=== PATIENT | female | born 1950 | race Caucasian/White ===

== ENCOUNTER 2020-06-21 14:37 | Outpatient (REF) | payer MEDICARE, MEDICAID, SELFPAY ==
[2020-06-21 16:25] LABS: Hematocrit 37.7 % (37-47); Hemoglobin 12.5 g/dl (12.0-16.0); Mean Corpuscular HGB Conc 33.2 g/dl (31.0-35.0); Mean Corpuscular Hemoglobin 28.5 pg (27.0-33.0); Mean Corpuscular Volume 86.1 fL (80-98); Mean Platelet Volume 11.4 fL (9.4-12.3); Platelet Count 206 X10*3/uL (160-400); Red Blood Count 4.38 X10*6/uL (4.20-5.50); Red Cell Distribution Width 12.8 % (11.0-16.0); White Blood Count 8.7 X10*3/uL (4.8-10.8)
[2020-06-21 16:51] LABS: Alanine Aminotransferase 14 U/L (0-31); Albumin Level 4.7 g/dL (3.5-5.0); Alkaline Phosphatase 89 U/L (39-117); Anion Gap 16 (12-20); Aspartate Amino Transferase 18 U/L (5-31); Bilirubin Total 0.3 mg/dL (0.0-1.0); Blood Urea Nitrogen 28 mg/dL (9-16); Calcium 9.9 mg/dL (8.4-10.2); Carbon Dioxide 24 mmol/L (22-29); Chloride 100 mmol/L (96-108); Cholesterol 251 mg/dL; Estimated Glomerular Filt Rate 35; Glucose Random 212 mg/dL (60-115); HDL Cholesterol 50 mg/dL; Potassium 4.7 mmol/l (3.3-5.1); Sodium 135 mmol/L (135-145); Total Protein 8.1 g/dL (6.5-8.0); Triglycerides 436 mg/dL
[2020-06-21 16:51] LABS: Creatinine Urine 138.72 mg/dL
[2020-06-21 17:12] LABS: Free T4 (Free Thyroxine) 1.29 ng/dL (0.71-1.85); Thyroid Stimulating Hormone 0.69 mIU/mL (0.32-4.0)
[2020-06-21 17:19] LABS: Vitamin B12 1022 pg/mL (200-900)
[2020-06-22 20:22] LABS: LDL Cholesterol Direct 131 mg/dL (<100)
== END 2020-06-21 14:38 | disposition home or self-care (01) ==
LOC: HO.LAB 14:37
PROVIDERS: PCP Physician Assistant; Referring Provider Physician Assistant; Visit Provider Internal Medicine Endocrinology, Diabetes & Metabolism
DX: E11.65 Type 2 diabetes mellitus with hyperglycemia (principal); E11.43 Type 2 diabetes mellitus with diabetic autonomic (poly)neuropathy; E11.40 Type 2 diabetes mellitus with diabetic neuropathy, unspecified; E11.22 Type 2 diabetes mellitus with diabetic chronic kidney disease; I12.9 Hypertensive chronic kidney disease with stage 1 through stage 4 chronic kidney disease, or unspecified chronic kidney disease; N18.30 Chronic kidney disease, stage 3 unspecified; Z79.4 Long term (current) use of insulin; E55.9 Vitamin D deficiency, unspecified
CPT/HCPCS: 36415; 80053; 80061; 82043; 82607; 82947; 83721; 84439; 84443; 85027; 99214

== ENCOUNTER → 2020-08-08 16:00 | Outpatient (BNVA) | payer MEDICARE, MEDICAID, SELFPAY | PROVIDERS: PCP Physician Assistant; Visit Provider Surgery | DX: L97.519 Non-pressure chronic ulcer of other part of right foot with unspecified severity (principal) | CPT/HCPCS: 99202 ==

== ENCOUNTER → 2020-09-05 14:03 | Outpatient (BNVA) | payer MEDICARE, MEDICAID, SELFPAY | PROVIDERS: Visit Provider Surgery | DX: L97.519 Non-pressure chronic ulcer of other part of right foot with unspecified severity (principal) | CPT/HCPCS: 99212 ==

== ENCOUNTER 2020-10-25 16:53 | Outpatient (REF) | payer MEDICARE, MEDICAID, SELFPAY ==
[2020-10-25 17:43] LABS: Anion Gap 18 (12-20); Blood Urea Nitrogen 27 mg/dL (9-16); Calcium 9.7 mg/dL (8.4-10.2); Carbon Dioxide 23 mmol/L (22-29); Chloride 101 mmol/L (96-108); Estimated Glomerular Filt Rate 26; Glucose Random 190 mg/dL (60-115); Potassium 4.8 mmol/L (3.3-5.1); Sodium 137 mmol/L (135-145)
== END 2020-10-25 16:54 | disposition home or self-care (01) ==
LOC: HO.LAB 16:53
PROVIDERS: PCP Physician Assistant; Visit Provider Physician Assistant
DX: Z01.812 Encounter for preprocedural laboratory examination (principal)
CPT/HCPCS: 36415; 80048

== ENCOUNTER 2020-10-26 15:20 | Outpatient (REF) | payer MEDICARE, MEDICAID, SELFPAY ==
--- NOTE | ~2020-10-26 | CT_ITS ---
EXAMINATION: CT ABDOMEN AND PELVIS WITHOUT CONTRAST CLINICAL INFORMATION: Right lower quadrant pain. COMPARISON: None TECHNIQUE: Multidetector volumetric imaging was performed from the superior aspect of the liver through the pubic symphysis. Oral contrast is used. Sagittal and coronal reformatted images were obtained on the technologist's workstation. This CT examination was performed using dose optimization techniques as appropriate, variously including the following: *Automated exposure control *Adjustment of mA and/or kV according to patient size (this includes techniques or standardized protocols for targeted exams where dose is matched to indication/reason for exam; i.e. extremities or head) *Use of iterative reconstruction technique DLP: 615 mGy-cm FINDINGS: LUNG BASES: The visualized lung bases are unremarkable. LIVER, GALLBLADDER, AND BILIARY TREE: 3 mm calcified granuloma in the right lobe. No lesions seen. No biliary duct dilatation. Gallbladder appears unremarkable. PANCREAS: Fatty atrophy. No acute inflammatory changes seen. SPLEEN: Unremarkable. ADRENAL GLANDS: Unremarkable. KIDNEYS AND URETERS: No calculi or hydronephrosis. No solid lesions identified. BLADDER: Unremarkable. GASTROINTESTINAL TRACT: Small hiatal hernia. The stomach has luminal contents with oral contrast and fluid. No dilated small bowel loops. The large colon is distended. Scattered colonic diverticula without evidence of diverticulitis. No pericolonic inflammatory changes are seen. Appendix measures approximately 6-7 mm in thickness. No periappendiceal inflammatory changes are seen. There are nonspecific subcentimeter mesenteric lymph nodes in the right lower abdomen. No free fluid. No free air. ABDOMINAL WALL: Small fat-containing umbilical hernia. LYMPH NODES: Subcentimeter retroperitoneal lymph nodes. Subcentimeter nonspecific mesenteric lymph nodes. No enlarged lymph nodes by size criteria are identified in the abdomen or pelvis. VASCULAR: No aneurysmal dilatation of the aorta. Atherosclerotic vascular calcification. PELVIC VISCERA: Within normal limits for CT. OSSEOUS STRUCTURES: Degenerative changes in the spine. No acute or suspicious osseous abnormality seen. CT/CT abdomen pelvis wo con IMPRESSION: 1. The appendix measures approximately 6-7 mm in thickness, nonspecific borderline prominence. No periappendiceal inflammatory changes are seen. Nonspecific subcentimeter mesenteric lymph nodes in the right lower quadrant. Recommend clinical correlation and management. Short-term followup CT for reassessment as clinically warranted. 2. Fatty atrophy of the pancreas. Attempts were made to discuss the findings with the referring physician without success. The physician dental hygiene administrative assistant will inform the referring office.
[2020-10-26] MEDS: Barium Sulfate Oral (Berry) 450 ML ORAL.SUSP 900 ML PO (18:02)
== END 2020-10-26 15:21 | disposition home or self-care (01) ==
LOC: HO.CT 15:20
PROVIDERS: PCP Physician Assistant; Visit Provider Physician Assistant
DX: R10.31 Right lower quadrant pain (principal)
CPT/HCPCS: 74176

== ENCOUNTER → 2020-12-01 11:18 | Outpatient (BNVA) | payer MEDICARE, MEDICAID, SELFPAY | PROVIDERS: PCP Physician Assistant; Visit Provider Surgery | DX: E11.621 Type 2 diabetes mellitus with foot ulcer (principal); L97.509 Non-pressure chronic ulcer of other part of unspecified foot with unspecified severity | CPT/HCPCS: 99212 ==

== ENCOUNTER → 2021-01-22 13:25 | Outpatient (BNVA) | payer MEDICARE, MEDICAID, SELFPAY | PROVIDERS: Visit Provider Internal Medicine | DX: E11.621 Type 2 diabetes mellitus with foot ulcer (principal); L97.509 Non-pressure chronic ulcer of other part of unspecified foot with unspecified severity | CPT/HCPCS: 99212 ==

== ENCOUNTER → 2021-02-02 11:00 | Outpatient (BNVA) | payer MEDICARE, MEDICAID, SELFPAY | PROVIDERS: PCP Physician Assistant; Referring Provider Physician Assistant; Visit Provider Surgery | DX: E11.621 Type 2 diabetes mellitus with foot ulcer (principal); L97.509 Non-pressure chronic ulcer of other part of unspecified foot with unspecified severity | CPT/HCPCS: 99212 ==

== ENCOUNTER → 2021-02-09 10:20 | Outpatient (BNVA) | payer MEDICARE, MEDICAID, SELFPAY | PROVIDERS: PCP Physician Assistant; Referring Provider Physician Assistant; Visit Provider Surgery | DX: E11.621 Type 2 diabetes mellitus with foot ulcer (principal); L97.509 Non-pressure chronic ulcer of other part of unspecified foot with unspecified severity | CPT/HCPCS: 99212 ==

== ENCOUNTER → 2021-02-12 14:27 | Outpatient (BNVA) | payer MEDICARE, MEDICAID, SELFPAY | PROVIDERS: Visit Provider Internal Medicine | DX: E11.621 Type 2 diabetes mellitus with foot ulcer (principal); L97.509 Non-pressure chronic ulcer of other part of unspecified foot with unspecified severity | CPT/HCPCS: 99212 ==

== ENCOUNTER → 2021-02-23 11:00 | Outpatient (BNVA) | payer MEDICARE, MEDICAID, SELFPAY | PROVIDERS: Visit Provider Surgery | DX: E11.621 Type 2 diabetes mellitus with foot ulcer (principal); L97.509 Non-pressure chronic ulcer of other part of unspecified foot with unspecified severity | CPT/HCPCS: 99212 ==

== ENCOUNTER 2021-02-27 11:16 | Outpatient (REF) | payer MEDICARE, MEDICAID, SELFPAY ==
--- NOTE | ~2021-02-27 | MR_ITS ---
EXAMINATION: MR FOOT NONJOINT WITHOUT CONTRAST, LEFT CLINICAL INFORMATION: Type 2 diabetes mellitus with foot ulcer. Patient reports left foot wound since December 15. COMPARISON: XR left foot 06/09/2015. TECHNIQUE: MRI of the left foot was performed using routine sequences on a high-field scanner. A skin marker was placed in the plantar aspect of the foot at the level of the proximal 1st through 3rd toes. FINDINGS: There is skin irregularity subtle ulceration plantar to the 2nd MTP joint. There is underlying subcutaneous edema and there is mild focal bone marrow edema in the plantar head of the 2nd metatarsal. There is moderate bone marrow edema at the base of the second proximal phalanx extending from the epiphysis to metaphysis. These areas of edema are identified on the T1 and STIR images and are suspicious for osteomyelitis. There may be mild bone marrow edema in the middle and distal phalanges of the 2nd toe, and the base of the 3rd proximal phalanx, but these appear to be identified on the STIR images and not definitely on the T1-weighted images, and may be reactive. There is focal bone marrow edema in the distal medial aspect of the partially visualized talus which is most likely degenerative. There is moderate osteoarthritis of the 1st MTP joint with a hallux valgus deformity. There is deformity and patchy edema in the distal 5th metatarsal. I suspect this may be related to a subacute fracture. There is scattered subcutaneous edema along the dorsum of the foot, as well as the plantar aspect. MR/MR foot LT wo con IMPRESSION: 1. Skin irregularity and subtle ulceration plantar to the 2nd MTP joint. Bone marrow edema in the plantar head of the 2nd metatarsal and the base of the 2nd proximal phalanx, identified on the T1 and STIR images, suspicious for osteomyelitis. 2. Suspected reactive bone marrow edema in the 2nd middle and distal phalanges in the 3rd proximal phalanx. 3. 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 4. A subacute fracture of the distal 5th metatarsal is suspected. Recommend correlation with plain films.
[2021-02-27 11:55] LABS: Blood Urea Nitrogen 31 mg/dL (9-16); Estimated Glomerular Filt Rate 16
== END 2021-02-27 11:17 | disposition home or self-care (01) ==
LOC: HO.MRI 11:16
PROVIDERS: PCP Physician Assistant; Visit Provider Surgery
DX: L97.502 Non-pressure chronic ulcer of other part of unspecified foot with fat layer exposed (principal); E11.621 Type 2 diabetes mellitus with foot ulcer
CPT/HCPCS: 36415; 73718; 82565; 84520

== ENCOUNTER → 2021-03-09 11:22 | Outpatient (BNVA) | payer MEDICARE, MEDICAID, SELFPAY | PROVIDERS: PCP Physician Assistant; Referring Provider Physician Assistant; Visit Provider Surgery | DX: E11.621 Type 2 diabetes mellitus with foot ulcer (principal); L97.509 Non-pressure chronic ulcer of other part of unspecified foot with unspecified severity | CPT/HCPCS: 99212 ==

== ENCOUNTER → 2021-03-23 11:22 | Outpatient (BNVA) | payer MEDICARE, MEDICAID, SELFPAY | PROVIDERS: PCP Physician Assistant; Referring Provider Physician Assistant; Visit Provider Surgery | DX: E11.621 Type 2 diabetes mellitus with foot ulcer (principal); L97.509 Non-pressure chronic ulcer of other part of unspecified foot with unspecified severity | CPT/HCPCS: 99212 ==

== ENCOUNTER → 2021-04-06 11:17 | Outpatient (BNVA) | payer MEDICARE, MEDICAID, SELFPAY | PROVIDERS: PCP Physician Assistant; Referring Provider Physician Assistant; Visit Provider Surgery | DX: E11.621 Type 2 diabetes mellitus with foot ulcer (principal); L97.509 Non-pressure chronic ulcer of other part of unspecified foot with unspecified severity | CPT/HCPCS: 99212 ==

== ENCOUNTER → 2021-04-20 11:19 | Outpatient (BNVA) | payer MEDICARE, MEDICAID, SELFPAY | PROVIDERS: PCP Physician Assistant; Referring Provider Physician Assistant; Visit Provider Surgery | DX: E11.621 Type 2 diabetes mellitus with foot ulcer (principal); L97.519 Non-pressure chronic ulcer of other part of right foot with unspecified severity; L97.529 Non-pressure chronic ulcer of other part of left foot with unspecified severity; I87.8 Other specified disorders of veins | CPT/HCPCS: 99212 ==

== ENCOUNTER → 2021-05-04 11:17 | Outpatient (BNVA) | payer MEDICARE, MEDICAID, SELFPAY | PROVIDERS: PCP Physician Assistant; Referring Provider Physician Assistant; Visit Provider Surgery | DX: E11.621 Type 2 diabetes mellitus with foot ulcer (principal); L97.509 Non-pressure chronic ulcer of other part of unspecified foot with unspecified severity | CPT/HCPCS: 99212 ==

== ENCOUNTER → 2021-05-18 11:15 | Outpatient (BNVA) | payer MEDICARE, MEDICAID, SELFPAY | PROVIDERS: PCP Physician Assistant; Referring Provider Physician Assistant; Visit Provider Surgery | DX: E11.621 Type 2 diabetes mellitus with foot ulcer (principal); L97.509 Non-pressure chronic ulcer of other part of unspecified foot with unspecified severity | CPT/HCPCS: 99212 ==

== ENCOUNTER → 2021-06-01 11:24 | Outpatient (BNVA) | payer MEDICARE, MEDICAID, SELFPAY | PROVIDERS: PCP Physician Assistant; Referring Provider Physician Assistant; Visit Provider Surgery | DX: E11.621 Type 2 diabetes mellitus with foot ulcer (principal); L97.509 Non-pressure chronic ulcer of other part of unspecified foot with unspecified severity | CPT/HCPCS: 99212 ==

== ENCOUNTER → 2021-06-22 11:22 | Outpatient (BNVA) | payer MEDICARE, MEDICAID, SELFPAY | PROVIDERS: PCP Physician Assistant; Referring Provider Physician Assistant; Visit Provider Surgery | DX: E11.621 Type 2 diabetes mellitus with foot ulcer (principal); L97.509 Non-pressure chronic ulcer of other part of unspecified foot with unspecified severity | CPT/HCPCS: 99212 ==

== ENCOUNTER → 2021-07-06 11:07 | Outpatient (BNVA) | payer MEDICARE, MEDICAID, SELFPAY | PROVIDERS: PCP Physician Assistant; Referring Provider Physician Assistant; Visit Provider Surgery | DX: E11.621 Type 2 diabetes mellitus with foot ulcer (principal); L97.509 Non-pressure chronic ulcer of other part of unspecified foot with unspecified severity | CPT/HCPCS: 99212 ==

== ENCOUNTER → 2021-07-20 11:02 | Outpatient (BNVA) | payer MEDICARE, MEDICAID, SELFPAY | PROVIDERS: PCP Physician Assistant; Referring Provider Physician Assistant; Visit Provider Surgery | DX: E11.621 Type 2 diabetes mellitus with foot ulcer (principal); L97.509 Non-pressure chronic ulcer of other part of unspecified foot with unspecified severity | CPT/HCPCS: 99212 ==

== ENCOUNTER → 2021-08-03 11:09 | Outpatient (BNVA) | payer MEDICARE, MEDICAID, SELFPAY | PROVIDERS: PCP Physician Assistant; Referring Provider Physician Assistant; Visit Provider Surgery | DX: E11.621 Type 2 diabetes mellitus with foot ulcer (principal); L97.529 Non-pressure chronic ulcer of other part of left foot with unspecified severity; L84 Corns and callosities | CPT/HCPCS: 99212 ==

== ENCOUNTER → 2021-08-17 10:59 | Outpatient (BNVA) | payer MEDICARE, MEDICAID, SELFPAY | PROVIDERS: PCP Physician Assistant; Referring Provider Physician Assistant; Visit Provider Surgery | DX: E11.621 Type 2 diabetes mellitus with foot ulcer (principal); L97.512 Non-pressure chronic ulcer of other part of right foot with fat layer exposed | CPT/HCPCS: 99212 ==

== ENCOUNTER → 2021-09-07 11:20 | Outpatient (BNVA) | payer MEDICARE, MEDICAID, SELFPAY | PROVIDERS: PCP Physician Assistant; Referring Provider Physician Assistant; Visit Provider Surgery | DX: E11.621 Type 2 diabetes mellitus with foot ulcer (principal); L97.512 Non-pressure chronic ulcer of other part of right foot with fat layer exposed | CPT/HCPCS: 99212 ==

== ENCOUNTER → 2021-09-21 10:50 | Outpatient (BNVA) | payer MEDICARE, MEDICAID, SELFPAY | PROVIDERS: PCP Physician Assistant; Visit Provider Surgery | DX: E11.621 Type 2 diabetes mellitus with foot ulcer (principal); L97.522 Non-pressure chronic ulcer of other part of left foot with fat layer exposed | CPT/HCPCS: 11306; 99212 ==

== ENCOUNTER → 2021-10-05 11:14 | Outpatient (BNVA) | payer MEDICARE, MEDICAID, SELFPAY | PROVIDERS: PCP Physician Assistant; Referring Provider Physician Assistant; Visit Provider Surgery | DX: E11.621 Type 2 diabetes mellitus with foot ulcer (principal); L97.512 Non-pressure chronic ulcer of other part of right foot with fat layer exposed | CPT/HCPCS: 99212 ==

== ENCOUNTER → 2021-10-26 11:53 | Outpatient (BNVA) | payer MEDICARE, MEDICAID, SELFPAY | PROVIDERS: PCP Physician Assistant; Visit Provider Surgery | DX: E11.621 Type 2 diabetes mellitus with foot ulcer (principal); L97.512 Non-pressure chronic ulcer of other part of right foot with fat layer exposed | CPT/HCPCS: 97597; 99212 ==

== ENCOUNTER → 2021-11-09 11:00 | Outpatient (BNVA) | payer MEDICARE, MEDICAID, SELFPAY | PROVIDERS: PCP Physician Assistant; Referring Provider Physician Assistant; Visit Provider Surgery | DX: E11.621 Type 2 diabetes mellitus with foot ulcer (principal); L97.512 Non-pressure chronic ulcer of other part of right foot with fat layer exposed | CPT/HCPCS: 97597; 99212 ==

== ENCOUNTER → 2021-11-23 11:00 | Outpatient (BNVA) | payer MEDICARE, MEDICAID, SELFPAY | PROVIDERS: PCP Physician Assistant; Referring Provider Physician Assistant; Visit Provider Surgery | DX: E11.621 Type 2 diabetes mellitus with foot ulcer (principal); L97.512 Non-pressure chronic ulcer of other part of right foot with fat layer exposed | CPT/HCPCS: 99212 ==

== ENCOUNTER 2021-11-26 19:04 | Emergency (ER) | payer MEDICARE, MEDICAID, SELFPAY ==
[2021-11-26 20:23] VITALS: BP 197/90; PULSE 94; RESP 17; TEMP 36.8; O2SAT 99; BMI 28.5
[2021-11-26 22:52] VITALS: BP 159/62; PULSE 81; RESP 14; TEMP 37; O2SAT 98
--- NOTE | 2021-11-26 22:53 | ED_ITS ---
HPI - General Adult General Chief complaint: General Medical Stated complaint: Eye problem Time Seen by Provider: 11/26/21 22:53 Source: patient Mode of arrival: ambulatory Limitations: no limitations History of Present Illness HPI narrative: 71-year-old female came in for evaluation of right-sided temporal headache, seen light flashes with her right eye, blurry vision of the right eye. Patient declined any trauma to the right eye, now there is no visual acuity, headache has improved after she took ibuprofen earlier today. Patient had family history of glaucoma. Related Data Home Medications Medication Instructions Recorded Confirmed morphine 60 mg tablet,extended mg PO 06/15/20 10/09/21 release oxycodone 5 mg tablet 5 mg PO BID PRN 06/15/20 10/09/21 pen needle, diabetic 32 gauge x #50 ea 06/21/20 10/09/21 Previous Rx's Medication Instructions Recorded irbesartan 150 mg tablet 150 mg PO DAILY 90 Days #90 tab 06/21/20 pen needle, diabetic 32 gauge x #400 ea 06/21/20 (BD Padma 2nd Gen Pen Needle) omega-3 fatty acids 1,000 mg 1,000 mg PO BID 30 Days #60 cap 06/22/20 capsule betamethasone dipropionate 0.05 % 1 appl TOPICAL DAILY PRN #45 g 12/01/20 topical cream fluconazole 200 mg tablet 200 mg PO DAILY 30 Days #30 tab 01/22/21 dressing,collagen-sodium #1 box 02/15/21 alginate-carboxymethylcellulose 2 X 2 doxycycline hyclate 100 mg capsule 100 mg PO BID 10 Days #20 cap 04/09/21 flash glucose sensor (FreeStyle #1 ea 04/26/21 Yuki 14 Day Sensor) Synthroid 125 mcg tablet 125 mcg PO DAILY 90 Days #90 tab NS 08/14/21 (levothyroxine) amlodipine 10 mg tablet 10 mg PO DAILY #90 tab 08/14/21 insulin glargine U-300 conc 300 30 unit (0.1 mL) SUBCUT DAILY 90 08/14/21 unit/mL (1.5 mL) subcutaneous pen Days #4.5 ml insulin lispro 100 unit/mL See Rx Instructions SUBCUT . 4 08/14/21 subcutaneous pen (Humalog KwikPen times a day 90 Days #45 ml (U-100) Insulin) linagliptin 5 mg tablet (Tradjenta) 5 mg PO DAILY #90 tab 08/14/21 flash glucose sensor (FreeStyle #1 ea 08/15/21 Yuki 14 Day Sensor) prednisone 20 mg tablet 20 mg PO BID #10 tab 11/27/21 Allergies Allergy/AdvReac Type Severity Reaction Status Date / Time gabapentin [GABAPENTIN] Allergy Severe SWELLING Verified 11/23/21 11:13 latex [LATEX] Allergy Severe ANAPHYLAXIS Verified 11/23/21 11:13 levofloxacin AdvReac Unknown multiple Verified 11/23/21 11:13 unpleasant side effects doxycycline AdvReac Hallucinati Verified 11/23/21 11:13 ons powder Allergy Unknown anaphylaxis Uncoded 11/23/21 11:13 Review of Systems Review of Systems: All other systems are reviewed and are negative Constitutional: Reports as per HPI and Reports no additional constitutional complaints Eyes: Reports as per HPI and Reports no additional eye complaints Reports system reviewed and no additional complaints, except as documented Cardiovascular: Reports as per HPI and Reports no additional cardiovascular complaints Respiratory: Reports as per HPI and Reports no additional respiratory complaints Gastrointestinal: Reports as per HPI and Reports no additional gastrointestinal complaints Genitourinary: Reports no additional female genitourinary complaints Musculoskeletal: Reports no additional musculoskeletal complaints Skin/Breast: Reports system reviewed and no additional complaints, except as docu Psychiatric: Reports no additional psychiatric complaints Endocrine: Reports no additional endocrine complaints Hematologic/Lymphatic: Reports no additional hematologic/lymphatic complaints Allergic/Immunologic: Reports no additional allergic/immunologic complaints Reports system reviewed and no additional complaints, except as documented and Reports Abnormal speech present [facility] Past Medical History Medical History CKD (chronic kidney disease) stage 3, GFR 30-59 ml/min Diabetes type 2, uncontrolled Diabetic neuropathy associated with type 2 diabetes mellitus Dyslipidemia Gastroparesis due to DM 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 Mother Diabetes Social History Social History Patient Tobacco Use Status: Never used Tobacco Tobacco use type: Cigarette e-Cigarette/Vaping Use: Never Used Advance Directives: No Advance Directives Information Provided: No Physical Exam ED Vital Signs: Vital Signs - 24 hr 11/26/21 20:23 11/26/21 22:52 Temperature 98.2 F 98.6 F Pulse Rate 94 81 Respiratory Rate 17 14 Blood Pressure 197/90 H 159/62 H Pulse Oximetry 99 98 BMI result Body Mass Index 28.5 vital signs have been reviewed as appeared to be correct. Blood pressure elevated. Heart rate normal. Respiration rate normal. Temperature normal. Oxygen saturation normal. Appearance: Alert. Oriented X3. No acute distress. Head: Normal external exam. Normocephalic. Atraumatic. No Angelo signs noted. No raccoon eyes noted Eyes: PERRLA. EOMI. Conjunctiva and sclera normal. Eyelids normal , visual acuity 20/40 bilaterally, IOP in the right is 14, in the left is 12. no temporal tenderness on percussion. Visual field is intact bilateral. ENT: TM's Normal. Pharynx normal. Uvula midline. Moist mucous membranes. No trismus noted. No drooling noted. No muffled voice noted. Neck: Normal inspection. Neck supple. FROM. No adenopathy. Thyroid Normal. No meningeal signs. No neck mass noted. CVS: Normal heart rate and rhythm. Heart sound normal. No murmurs noted. Pulses normal throughout. Respiratory: No respiratory distress. Painless inspiration. Breath sounds normal. No wheezes/rales/rhonchi noted. Chest nontender. No accessory muscle usage noted or decreased air movement noted. Abdomen: Soft and nontender. Bowel sounds normal in all 4 quadrants. No distention noted. No organomegaly noted. No visible injury noted. Back: No CVA tenderness. Full range of motion noted. Skin: Skin warm and dry. Normal skin color. Normal skin turgor. No rashes/lesions/lacerations noted. Extremities: No lower extremity edema. Extremities exhibit normal range of motion. Extremities nontender. Neuro: Oriented X 3. Cranial nerve exam: II-XII are grossly intact No motor deficit. No sensory deficit. Reflexes normal. Course Course Course Narrative: Assessment and plan. 71-year-old female came in with right-sided facial pain / right eye pain. There is increase of C-reactive protein and sed rate, but no temporal or scalp tenderness, normal visual acuity, normal visual field, normal IOP, patient was reassured, patient is scheduled to see Dr. Quick tomorrow. Will start the patient on short course of low-dose of prednisone for possible temper arthritis. Medical Decision Making Lab Data Lab results reviewed: Yes I reviewed the patient's lab results. Result diagrams: 11/26/21 23:26 Labs: Lab Results 11/26/21 11/26/21 11/26/21 Range/Units 23:26 23:26 23:26 WBC 10.1 (4.8-10.8) X10*3/uL RBC 4.32 (4.20-5.50) X10*6/uL Hgb 11.7 L (12.0-16.0) g/dl Hct 35.2 L (37.0-47.0) % MCV 81.5 (80.0-98.0) fL MCH 27.1 (27.0-33.0) pg MCHC 33.2 (31.0-35.0) g/dl RDW 12.9 (11.0-16.0) % Plt Count 225 (160-400) X10*3/uL MPV 9.8 (9.4-12.3) fL Immature Gran % (Auto) 0.6 H (0.0-0.4) % Neut % (Auto) 66.4 (45-73) % Lymph % (Auto) 22.6 (20-40) % [place] % (Auto) 8.0 (2-11) % Eos % (Auto) 1.9 (0-4) % Baso % (Auto) 0.5 (0-2) % Lymph # (Auto) 2.3 (1.2-4.9) X10*3/uL [place] # (Auto) 0.8 (0.1-1.2) X10*3/uL Eos # (Auto) 0.2 (0.0-0.4) X10*3/uL Baso # (Auto) 0.1 (0.0-0.2) X10*3/uL Abs Immat Gran (auto) 0.06 H (0.00-0.03) X10*3/uL Absolute Neuts (auto) 6.7 (2.0-8.3) x10*3/uL Absolute Nucleated RBC 0.000 (0.0-0.012) X10*3/uL Nucleated RBC % (auto) 0.0 (0.0-0.2) /100WBC ESR 28 H (0-20) MM/HR C-Reactive Protein 1.63 H (< or = 0.50) mg/dL Discharge Plan Discharge Clinical Impression: Acute right eye pain Patient Disposition: Home, Self-Care Instructions: Atypical Facial Pain (ED) Prescriptions: New prednisone 20 mg tablet 20 mg PO BID Qty: 10 0RF No Action omega-3 fatty acids 1,000 mg capsule 1,000 mg PO BID 30 Days Qty: 60 6RF (DME) dressing,collagen-Na alg-cmc 2 X 2 bandage See Rx Instructions .ROUTE .MEDSUPPLY Qty: 1 0RF Rx Instructions: Apply to wound bed as directed, daily doxycycline hyclate 100 mg capsule 100 mg PO BID 10 Days Qty: 20 0RF (DME) FreeStyle Yuki 14 Day Sensor Kit See Rx Instructions .Route Qty: 1 0RF Rx Instructions: As directed (DME) FreeStyle Yuki 14 Day Sensor Kit See Rx Instructions .Route Qty: 1 4RF Rx Instructions: As directed morphine 60 mg tablet extended release PO 0RF oxycodone 5 mg tablet 5 mg PO BID PRN0RF levothyroxine [Synthroid] 125 mcg tablet 125 mcg PO DAILY 90 Days Qty: 90 2RF amlodipine 10 mg tablet 10 mg PO DAILY Qty: 90 1RF Tradjenta 5 mg tablet 5 mg PO DAILY Qty: 90 1RF insulin lispro [Humalog KwikPen Insulin] 100 unit/mL insulin pen See Rx Instructions subcut . 4 times a day 90 Days Qty: 45 1RF Rx Instructions: 7-15 unts before each meal and snacks subcut . 4 times a day; insulin glargine U-300 conc 300 unit/mL (1.5 mL) insulin pen 30 unit subcut DAILY 90 Days Qty: 4.5 1RF (DME) pen needle, diabetic 32 gauge x 5/32 needle See Rx Instructions ea subcut .MEDSUPPLY Qty: 50 0RF Rx Instructions: As directed irbesartan 150 mg tablet 150 mg PO DAILY 90 Days Qty: 90 1RF (DME) pen needle, diabetic [BD Padma 2nd Gen Pen Needle] 32 gauge x 5/32 needle See Rx Instructions .MEDSUPPLY Qty: 400 4RF Rx Instructions: 5 times a day betamethasone dipropionate 0.05 % cream 1 appl topical DAILY PRN (Reason: skin irritation) Qty: 45 4RF fluconazole 200 mg tablet 200 mg PO DAILY 30 Days Qty: 30 1RF Referrals: Dread Heredia PA-C [Primary Care Provider] - 2 days Harpal Quick [Physician] - 1 day
[2021-11-26] MEDS: Tetracaine HCl/PF 0.5% Oph Sol 4 ML DROPS 1 DROP EYE-BOTH (23:19)
[2021-11-26 23:32] LABS: Basophils Absolute Auto 0.1 X10*3/uL (0.0-0.2); Basophils Percent Auto 0.5 % (0-2); Eosinophils Absolute Auto 0.2 X10*3/uL (0.0-0.4); Eosinophils Percent Auto 1.9 % (0-4); Hematocrit 35.2 % (37.0-47.0); Hemoglobin 11.7 g/dl (12.0-16.0); Imm Gran Abs Auto 0.06 X10*3/uL (0.00-0.03); Imm Gran Pct Auto 0.6 % (0.0-0.4); Lymphocytes Absolute Auto 2.3 X10*3/uL (1.2-4.9); Lymphocytes Percent Auto 22.6 % (20-40); MANUAL DIFF FLAG NO; Mean Corpuscular HGB Conc 33.2 g/dl (31.0-35.0); Mean Corpuscular Hemoglobin 27.1 pg (27.0-33.0); Mean Corpuscular Volume 81.5 fL (80.0-98.0); Mean Platelet Volume 9.8 fL (9.4-12.3); Monocytes Absolute Auto 0.8 X10*3/uL (0.1-1.2); Neutrophils Absolute Auto 6.7 x10*3/uL (2.0-8.3); Neutrophils Percent Auto 66.4 % (45-73); Platelet Count 225 X10*3/uL (160-400); Red Blood Count 4.32 X10*6/uL (4.20-5.50); Red Cell Distribution Width 12.9 % (11.0-16.0); White Blood Count 10.1 X10*3/uL (4.8-10.8)
[2021-11-26 23:51] LABS: C Reactive Protein 1.63 mg/dL (< or = 0.50)
[2021-11-27 00:16] LABS: Erythrocyte Sedimentation Rate 28 MM/HR (0-20)
[2021-11-27] MEDS: predniSONE 20 MG TABLET 40 MG PO (00:44)
== END 2021-11-27 01:04 | disposition home or self-care (01) ==
PROVIDERS: Emergency Provider Emergency Medicine; PCP Physician Assistant
DX: H57.11 Ocular pain, right eye (principal); E11.22 Type 2 diabetes mellitus with diabetic chronic kidney disease; I12.9 Hypertensive chronic kidney disease with stage 1 through stage 4 chronic kidney disease, or unspecified chronic kidney disease; N18.30 Chronic kidney disease, stage 3 unspecified; Z79.4 Long term (current) use of insulin
CPT/HCPCS: 36415; 85025; 85652; 86140; 99283; 99284

== ENCOUNTER 2021-12-03 13:29 | Outpatient (REF) | payer MEDICARE, MEDICAID, SELFPAY ==
[2021-12-03 14:11] VITALS: BP 149/65; PULSE 90; RESP 16; TEMP 36.6; O2SAT 97
[2021-12-03 14:13] VITALS: BMI 25.0
[2021-12-03 16:35] VITALS: BP 149/59; PULSE 85; RESP 16; O2SAT 98
== END 2021-12-03 13:30 | disposition home or self-care (01) ==
LOC: HO.MS 13:29
PROVIDERS: PCP Physician Assistant; Visit Provider Ophthalmology
PROC: (CPT 37609; principal; 2021-12-03 17:20)
DX: M31.6 Other giant cell arteritis (principal); R51.9 Headache, unspecified; R79.82 Elevated C-reactive protein (CRP); G50.1 Atypical facial pain; I10 Essential (primary) hypertension; E07.9 Disorder of thyroid, unspecified; Z83.511 Family history of glaucoma; Z91.040 Latex allergy status; Z88.8 Allergy status to other drugs, medicaments and biological substances; Z79.899 Other long term (current) drug therapy; E11.9 Type 2 diabetes mellitus without complications; Z79.4 Long term (current) use of insulin
CPT/HCPCS: 37609; 88305

== ENCOUNTER 2021-12-20 13:15 | Outpatient (REF) | payer MEDICARE, MEDICAID, SELFPAY ==
--- NOTE | ~2021-12-20 | US_ITS ---
EXAMINATION: BILATERAL LOWER EXTREMITY DUPLEX CLINICAL INFORMATION: Foot ulcer. Type 2 diabetes. TECHNIQUE: Real-time ultrasound and Doppler techniques (integrating B-mode 2-D vascular images, Doppler spectral analysis and color flow Doppler imaging) were utilized to interrogate the lower extremities. COMPARISON: None. FINDINGS: RIGHT LEG: Common femoral artery: 181 cm/s, biphasic. Profunda femoris artery: 125 cm/s, biphasic. Superficial femoral artery (proximal): 120 cm/s, biphasic. Superficial femoral artery (mid): 99 cm/s, biphasic. Superficial femoral artery (distal): 178 cm/s, biphasic. Popliteal artery: 118 cm/s, biphasic. Posterior tibial artery: 76 cm/s, biphasic. Peroneal artery: 46 cm/s, monophasic. LEFT LEG: Common femoral artery: 142 cm/s, biphasic. Profunda femoris artery: 96 cm/s, biphasic. Superficial femoral artery (proximal): 134 cm/s, biphasic. Superficial femoral artery (mid): 75.6 cm/s, biphasic. Superficial femoral artery (distal): 106 cm/s, monophasic. Popliteal artery: 84.1 cm/s, monophasic. Posterior tibial artery: 63.6 cm/s, monophasic. Peroneal artery: Not visualized. US/US arterial duplex LE BI IMPRESSION: Right: There is focally increased velocity within the distal superficial femoral artery suggesting a moderate hemodynamically significant stenosis. Multiphasic waveforms are present throughout the right lower extremity. Left: No evidence of hemodynamically significant stenosis by velocity criteria. Monophasic waveforms are present from the distal superficial femoral artery to the calf.
== END 2021-12-20 13:16 | disposition home or self-care (01) ==
LOC: HO.US 13:15
PROVIDERS: Visit Provider Surgery
DX: E11.621 Type 2 diabetes mellitus with foot ulcer (principal); L97.512 Non-pressure chronic ulcer of other part of right foot with fat layer exposed
CPT/HCPCS: 17250; 93925; 99212

== ENCOUNTER → 2021-12-28 11:17 | Outpatient (BNVA) | payer MEDICARE, MEDICAID, SELFPAY | PROVIDERS: PCP Physician Assistant; Referring Provider Physician Assistant; Visit Provider Surgery | DX: E11.621 Type 2 diabetes mellitus with foot ulcer (principal); L97.512 Non-pressure chronic ulcer of other part of right foot with fat layer exposed; I77.1 Stricture of artery | CPT/HCPCS: 99212 ==

== ENCOUNTER → 2022-01-11 11:11 | Outpatient (BNVA) | payer MEDICARE, MEDICAID, SELFPAY | PROVIDERS: PCP Physician Assistant; Referring Provider Physician Assistant; Visit Provider Surgery | DX: I77.1 Stricture of artery (principal); E11.621 Type 2 diabetes mellitus with foot ulcer; L97.512 Non-pressure chronic ulcer of other part of right foot with fat layer exposed | CPT/HCPCS: 99212 ==

== ENCOUNTER → 2022-02-08 10:53 | Outpatient (BNVA) | payer MEDICARE, MEDICAID, SELFPAY | PROVIDERS: PCP Physician Assistant; Visit Provider Surgery | DX: I77.1 Stricture of artery (principal); E11.621 Type 2 diabetes mellitus with foot ulcer; L97.512 Non-pressure chronic ulcer of other part of right foot with fat layer exposed | CPT/HCPCS: 99212 ==

== ENCOUNTER → 2022-02-22 10:52 | Outpatient (BNVA) | payer MEDICARE, MEDICAID, SELFPAY | PROVIDERS: PCP Physician Assistant; Visit Provider Surgery | DX: E11.621 Type 2 diabetes mellitus with foot ulcer (principal); L97.512 Non-pressure chronic ulcer of other part of right foot with fat layer exposed; I77.1 Stricture of artery | CPT/HCPCS: 97597; 99212 ==

== ENCOUNTER → 2022-03-08 10:56 | Outpatient (BNVA) | payer MEDICARE, MEDICAID, SELFPAY | PROVIDERS: PCP Physician Assistant; Visit Provider Surgery | DX: E11.621 Type 2 diabetes mellitus with foot ulcer (principal); L97.522 Non-pressure chronic ulcer of other part of left foot with fat layer exposed; I77.1 Stricture of artery; F41.9 Anxiety disorder, unspecified | CPT/HCPCS: 99212 ==

== ENCOUNTER → 2022-04-04 13:18 | Outpatient (BNVA) | payer MEDICARE, MEDICAID, SELFPAY | PROVIDERS: PCP Physician Assistant; Visit Provider Surgery | DX: E11.621 Type 2 diabetes mellitus with foot ulcer (principal); L97.512 Non-pressure chronic ulcer of other part of right foot with fat layer exposed | CPT/HCPCS: 99212 ==

== ENCOUNTER → 2022-04-18 13:35 | Outpatient (BNVA) | payer MEDICARE, MEDICAID, SELFPAY | PROVIDERS: PCP Physician Assistant; Visit Provider Surgery | DX: E11.621 Type 2 diabetes mellitus with foot ulcer (principal); L97.512 Non-pressure chronic ulcer of other part of right foot with fat layer exposed | CPT/HCPCS: 99212 ==

== ENCOUNTER 2022-05-10 11:24 | Outpatient (REF) | payer MEDICARE, MEDICAID, SELFPAY ==
[2022-05-10 12:05] LABS: Hematocrit 36.5 % (37.0-47.0); Hemoglobin 11.9 g/dl (12.0-16.0); Mean Corpuscular HGB Conc 32.6 g/dl (31.0-35.0); Mean Corpuscular Hemoglobin 26.4 pg (27.0-33.0); Mean Corpuscular Volume 80.9 fL (80.0-98.0); Mean Platelet Volume 11.6 fL (9.4-12.3); Platelet Count 154 X10*3/uL (160-400); Red Blood Count 4.51 X10*6/uL (4.20-5.50); Red Cell Distribution Width 13.2 % (11.0-16.0); White Blood Count 8.8 X10*3/uL (4.8-10.8)
[2022-05-10 12:22] LABS: Hemoglobin A1c % > 14.0 %
[2022-05-10 12:57] LABS: Creatinine Urine 152.82 mg/dL
[2022-05-10 13:01] LABS: Alanine Aminotransferase 16 U/L (0-31); Albumin Level 4.2 g/dL (3.5-5.0); Alkaline Phosphatase 77 U/L (39-117); Anion Gap 19 (12-20); Aspartate Amino Transferase 22 U/L (5-31); Bilirubin Total 0.5 mg/dL (0.0-1.0); Blood Urea Nitrogen 25 mg/dL (9-16); Calcium 9.5 mg/dL (8.4-10.2); Carbon Dioxide 19 mmol/L (22-29); Chloride 104 mmol/L (96-108); Cholesterol 279 mg/dL; Estimated Glomerular Filt Rate 38; Glucose Fasting 166 mg/dL (60-99); HDL Cholesterol 49 mg/dL; LDL Cholesterol Calculated 191 mg/dl; Potassium 4.3 mmol/L (3.3-5.1); Sodium 138 mmol/L (135-145); Total Protein 7.3 g/dL (6.5-8.0); Triglycerides 197 mg/dL
[2022-05-10 13:20] LABS: TSH reflex Free T4 0.26 uIU/mL (0.32-4.0)
[2022-05-10 13:56] LABS: Free T4 (Free Thyroxine) 1.13 ng/dL (0.71-1.85)
== END 2022-05-10 11:25 | disposition home or self-care (01) ==
LOC: HO.LAB 11:24
PROVIDERS: Visit Provider Physician Assistant
DX: I12.9 Hypertensive chronic kidney disease with stage 1 through stage 4 chronic kidney disease, or unspecified chronic kidney disease (principal); N18.30 Chronic kidney disease, stage 3 unspecified; E11.22 Type 2 diabetes mellitus with diabetic chronic kidney disease; E11.42 Type 2 diabetes mellitus with diabetic polyneuropathy; E78.5 Hyperlipidemia, unspecified; E03.9 Hypothyroidism, unspecified; E11.621 Type 2 diabetes mellitus with foot ulcer; L97.512 Non-pressure chronic ulcer of other part of right foot with fat layer exposed
CPT/HCPCS: 36415; 80053; 80061; 82043; 83036; 84439; 84443; 85027; 97597; 99212

== ENCOUNTER → 2022-05-24 10:27 | Outpatient (BNVA) | payer MEDICARE, MEDICAID, SELFPAY | PROVIDERS: PCP Physician Assistant; Visit Provider Surgery | DX: E11.621 Type 2 diabetes mellitus with foot ulcer (principal); L97.512 Non-pressure chronic ulcer of other part of right foot with fat layer exposed | CPT/HCPCS: 99212 ==

== ENCOUNTER → 2022-06-07 10:58 | Outpatient (BNVA) | payer MEDICARE, MEDICAID, SELFPAY | PROVIDERS: PCP Physician Assistant; Referring Provider Physician Assistant; Visit Provider Surgery | DX: E11.621 Type 2 diabetes mellitus with foot ulcer (principal); L97.512 Non-pressure chronic ulcer of other part of right foot with fat layer exposed | CPT/HCPCS: 17250; 99212 ==

== ENCOUNTER → 2022-06-14 11:32 | Outpatient (BNVA) | payer MEDICARE, MEDICAID, SELFPAY | PROVIDERS: PCP Physician Assistant; Referring Provider Physician Assistant; Visit Provider Surgery | DX: E11.621 Type 2 diabetes mellitus with foot ulcer (principal); L97.512 Non-pressure chronic ulcer of other part of right foot with fat layer exposed | CPT/HCPCS: 17250; 99212 ==

== ENCOUNTER → 2022-06-21 10:49 | Outpatient (BNVA) | payer MEDICARE, MEDICAID, SELFPAY | PROVIDERS: PCP Physician Assistant; Visit Provider Surgery | DX: E11.621 Type 2 diabetes mellitus with foot ulcer (principal); L97.512 Non-pressure chronic ulcer of other part of right foot with fat layer exposed; E11.65 Type 2 diabetes mellitus with hyperglycemia; E11.43 Type 2 diabetes mellitus with diabetic autonomic (poly)neuropathy; E11.22 Type 2 diabetes mellitus with diabetic chronic kidney disease; K31.84 Gastroparesis; I12.9 Hypertensive chronic kidney disease with stage 1 through stage 4 chronic kidney disease, or unspecified chronic kidney disease; N18.30 Chronic kidney disease, stage 3 unspecified; Z79.4 Long term (current) use of insulin | CPT/HCPCS: 99212 ==

== ENCOUNTER → 2022-07-05 10:54 | Outpatient (BNVA) | payer MEDICARE, MEDICAID, SELFPAY | PROVIDERS: PCP Physician Assistant; Visit Provider Surgery | DX: I87.8 Other specified disorders of veins (principal); E11.621 Type 2 diabetes mellitus with foot ulcer; L97.512 Non-pressure chronic ulcer of other part of right foot with fat layer exposed | CPT/HCPCS: 99212 ==

== ENCOUNTER 2022-07-09 15:14 | Outpatient (REF) | payer MEDICARE, MEDICAID, SELFPAY ==
--- NOTE | ~2022-07-09 | US_ITS ---
EXAMINATION: US VENOUS ULTRASOUND WITH DOPPLER LOWER EXTREMITY, LEFT CLINICAL INFORMATION: Left leg swelling. COMPARISON: None TECHNIQUE: Left leg. Ultrasound of the deep veins is performed from the hip to the calf with compression sonography and color and pulse Doppler assessment. Spectral analysis with color-flow imaging is performed. FINDINGS: There is normal venous compression and respiratory variation and augmented flow. The visualized common femoral vein, superficial femoral vein, profunda femoral vein, popliteal vein, and the trifurcation region shows no evidence of deep venous thrombosis. No left popliteal cyst. Mild to moderate subcutaneous edema is seen in the left calf. US/US venous duplex LE LT IMPRESSION: 1. No evidence of deep venous thrombosis in the visualized veins of the left lower extremity. 2. Mild to moderate subcutaneous edema in the left calf.
== END 2022-07-09 15:15 | disposition home or self-care (01) ==
LOC: HO.US 15:14
PROVIDERS: Visit Provider Surgery
DX: I87.8 Other specified disorders of veins (principal)
CPT/HCPCS: 93971

== ENCOUNTER 2022-07-19 11:17 | Outpatient (REF) | payer MEDICARE, MEDICAID, SELFPAY ==
[2022-07-19 11:34] LABS: MANUAL DIFF FLAG NO
[2022-07-19 11:56] LABS: Basophils Absolute Auto 0.1 X10*3/uL (0.0-0.2); Basophils Percent Auto 0.9 % (0-2); Eosinophils Absolute Auto 0.3 X10*3/uL (0.0-0.4); Eosinophils Percent Auto 3.1 % (0-4); Hematocrit 35.2 % (37.0-47.0); Hemoglobin 11.1 g/dl (12.0-16.0); Imm Gran Abs Auto 0.06 X10*3/uL (0.00-0.03); Imm Gran Pct Auto 0.7 % (0.0-0.4); Lymphocytes Absolute Auto 2.1 X10*3/uL (1.2-4.9); Lymphocytes Percent Auto 24.5 % (20-40); Mean Corpuscular HGB Conc 31.5 g/dl (31.0-35.0); Mean Corpuscular Volume 82.4 fL (80.0-98.0); Mean Platelet Volume 10.4 fL (9.4-12.3); Monocytes Absolute Auto 0.7 X10*3/uL (0.1-1.2); Monocytes Percent Auto 7.9 % (2-11); Neutrophils Absolute Auto 5.3 x10*3/uL (2.0-8.3); Neutrophils Percent Auto 62.9 % (45-73); Platelet Count 232 X10*3/uL (160-400); Red Blood Count 4.27 X10*6/uL (4.20-5.50); Red Cell Distribution Width 14.6 % (11.0-16.0); White Blood Count 8.5 X10*3/uL (4.8-10.8)
[2022-07-19 12:31] LABS: Amylase 51 U/L (28-100)
[2022-07-19 12:50] LABS: Alanine Aminotransferase 15 U/L (0-31); Alkaline Phosphatase 93 U/L (39-117); Anion Gap 16 (12-20); Aspartate Amino Transferase 17 U/L (5-31); Bilirubin Direct 0.2 mg/dL (0.0-0.5); Bilirubin Total 0.4 mg/dL (0.0-1.0); Blood Urea Nitrogen 27 mg/dL (9-16); Calcium 9.5 mg/dL (8.4-10.2); Carbon Dioxide 24 mmol/L (22-29); Chloride 105 mmol/L (96-108); Cholesterol 274 mg/dL; Estimated Glomerular Filt Rate 36; Glucose Random 130 mg/dL (60-115); HDL Cholesterol 58 mg/dL; LDL Cholesterol Calculated 181 mg/dl; Lipase 15 U/L (8-78); Potassium 4.3 mmol/L (3.3-5.1); Sodium 141 mmol/L (135-145); Total Protein 7.7 g/dL (6.5-8.0); Triglycerides 176 mg/dL
[2022-07-19 12:58] LABS: Estimated Average Glucose 255 mg/dL; Hemoglobin A1c % 10.5 %
[2022-07-19 13:03] LABS: Albumin Level 4.5 g/dL (3.5-5.0); TSH reflex Free T4 3.06 uIU/mL (0.32-4.0)
== END 2022-07-19 11:18 | disposition home or self-care (01) ==
LOC: HO.LAB 11:17
PROVIDERS: PCP Physician Assistant; Visit Provider Surgery
DX: R10.12 Left upper quadrant pain (principal); E78.5 Hyperlipidemia, unspecified; E11.65 Type 2 diabetes mellitus with hyperglycemia; E03.9 Hypothyroidism, unspecified
CPT/HCPCS: 36415; 80048; 80061; 80076; 82150; 83036; 83690; 84443; 85025; 99212

== ENCOUNTER 2022-08-01 10:59 | Outpatient (REF) | payer MEDICARE, MEDICAID, SELFPAY ==
--- NOTE | ~2022-08-01 | CT_ITS ---
EXAMINATION: CT ABDOMEN WITHOUT CONTRAST CLINICAL INFORMATION: Left upper quadrant pain COMPARISON: None TECHNIQUE: Contiguous axial thin section helical images of the abdomen were performed without contrast. The data set was reformatted in the coronal and sagittal planes and reviewed on an independent workstation. This CT examination was performed using dose optimization techniques as appropriate, variously including the following: *Automated exposure control *Adjustment of mA and/or kV according to patient size (this includes techniques or standardized protocols for targeted exams where dose is matched to indication/reason for exam; i.e. extremities or head) *Use of iterative reconstruction technique DLP: 380 mGy-cm FINDINGS: LUNG BASES: The lung bases are clear. Heart size is normal. There is small hiatal hernia. LIVER, GALLBLADDER, BILIARY TREE: The liver is normal size, shape and contour. No focal lesion or intrahepatic ductal dilatation seen. No radiopaque gallstones noted. PANCREAS: The pancreas is homogeneous in density normal size and contour. SPLEEN: The spleen is unremarkable. ADRENAL GLANDS AND KIDNEYS: Bilateral adrenal glands are symmetrical and normal. Both kidneys are normal size, shape and contour. No radiopaque renal calculi or hydronephrosis. There is minimal bilateral perinephric stranding. BOWEL LOOPS: There is scattered stool and gas seen in colon without distention. The small bowel loops are normal caliber. Appendix is not visualized. LYMPH NODES: Largest lymph node measures 7 mm. VASCULAR: There is atherosclerotic calcification of abdominal aorta. BONES: No aggressive lytic or sclerotic process seen. There is mild ventral spondylosis mid lumbar spine. CT/CT abdomen wo IV con IMPRESSION: 1. No acute intra-abdominal process seen. 2. Small hiatal hernia. Fleischner guidelines were followed.
== END 2022-08-01 11:00 | disposition home or self-care (01) ==
LOC: HO.CT 10:59
PROVIDERS: PCP Physician Assistant; Visit Provider Surgery
DX: R10.12 Left upper quadrant pain (principal)
CPT/HCPCS: 74150

== ENCOUNTER → 2022-08-02 11:00 | Outpatient (BNVA) | payer MEDICARE, MEDICAID, SELFPAY | PROVIDERS: PCP Physician Assistant; Visit Provider Surgery | DX: E11.621 Type 2 diabetes mellitus with foot ulcer (principal); L97.512 Non-pressure chronic ulcer of other part of right foot with fat layer exposed; Z79.4 Long term (current) use of insulin | CPT/HCPCS: 99212 ==

== ENCOUNTER → 2022-08-16 10:39 | Outpatient (BNVA) | payer MEDICARE, MEDICAID, SELFPAY | PROVIDERS: PCP Physician Assistant; Visit Provider Surgery | DX: E11.621 Type 2 diabetes mellitus with foot ulcer (principal); L97.512 Non-pressure chronic ulcer of other part of right foot with fat layer exposed; Z79.4 Long term (current) use of insulin | CPT/HCPCS: 99212 ==

== ENCOUNTER → 2022-08-30 10:41 | Outpatient (BNVA) | payer MEDICARE, MEDICAID, SELFPAY | PROVIDERS: PCP Physician Assistant; Visit Provider Surgery | DX: E11.621 Type 2 diabetes mellitus with foot ulcer (principal); L97.512 Non-pressure chronic ulcer of other part of right foot with fat layer exposed | CPT/HCPCS: 97597; 99212 ==

== ENCOUNTER → 2022-09-13 10:34 | Outpatient (BNVA) | payer MEDICARE, MEDICAID, SELFPAY | PROVIDERS: PCP Physician Assistant; Visit Provider Surgery | DX: E11.621 Type 2 diabetes mellitus with foot ulcer (principal); L97.512 Non-pressure chronic ulcer of other part of right foot with fat layer exposed; F41.9 Anxiety disorder, unspecified | CPT/HCPCS: 97597; 99212 ==

== ENCOUNTER → 2022-09-27 10:46 | Outpatient (BNVA) | payer MEDICARE, MEDICAID, SELFPAY | PROVIDERS: PCP Physician Assistant; Visit Provider Surgery | DX: E11.621 Type 2 diabetes mellitus with foot ulcer (principal); L97.512 Non-pressure chronic ulcer of other part of right foot with fat layer exposed | CPT/HCPCS: 97597; 99212 ==

== ENCOUNTER → 2022-10-11 10:49 | Outpatient (BNVA) | payer MEDICARE, MEDICAID, SELFPAY | PROVIDERS: PCP Physician Assistant; Visit Provider Surgery | DX: E11.621 Type 2 diabetes mellitus with foot ulcer (principal); L97.512 Non-pressure chronic ulcer of other part of right foot with fat layer exposed; E11.65 Type 2 diabetes mellitus with hyperglycemia; E11.40 Type 2 diabetes mellitus with diabetic neuropathy, unspecified; E11.22 Type 2 diabetes mellitus with diabetic chronic kidney disease; I12.9 Hypertensive chronic kidney disease with stage 1 through stage 4 chronic kidney disease, or unspecified chronic kidney disease; N18.30 Chronic kidney disease, stage 3 unspecified; Z79.4 Long term (current) use of insulin | CPT/HCPCS: 97597; 99212 ==

== ENCOUNTER → 2022-10-25 10:52 | Outpatient (BNVA) | payer MEDICARE, MEDICAID, SELFPAY | PROVIDERS: PCP Physician Assistant; Visit Provider Surgery | DX: E11.621 Type 2 diabetes mellitus with foot ulcer (principal); L97.512 Non-pressure chronic ulcer of other part of right foot with fat layer exposed | CPT/HCPCS: 97597; 99212 ==

== ENCOUNTER 2022-11-01 10:47 | Outpatient (REF) | payer MEDICARE, MEDICAID, SELFPAY ==
--- NOTE | ~2022-11-01 | CT_ITS ---
EXAMINATION: CT ABDOMEN AND PELVIS WITHOUT CONTRAST CLINICAL INFORMATION: Abdominal pain. COMPARISON: CT abdomen without contrast 08/01/2022. TECHNIQUE: Multidetector volumetric imaging was performed from the superior aspect of the liver through the pubic symphysis. Sagittal and coronal reformatted images were obtained on the technologist's workstation. This CT examination was performed using dose optimization techniques as appropriate, variously including the following: *Automated exposure control *Adjustment of mA and/or kV according to patient size (this includes techniques or standardized protocols for targeted exams where dose is matched to indication/reason for exam; i.e. extremities or head) *Use of iterative reconstruction technique DLP: 492 mGy-cm. FINDINGS: LUNG BASES: The lung bases are clear. Heart size is normal. There is a small hiatal hernia. LIVER, GALLBLADDER, AND BILIARY TREE: The liver is normal in size, shape, and attenuation. No focal hepatic lesion or biliary ductal dilatation is present. The gallbladder is unremarkable with no evidence of radiopaque gallstones, gallbladder wall thickening, or obvious pericholecystic inflammatory changes. PANCREAS: Unremarkable. SPLEEN: Unremarkable. ADRENAL GLANDS: Unremarkable. KIDNEYS AND URETERS: The kidneys are normal in size, shape, and attenuation. No hydronephrosis, hydroureter, or calculi seen. There is mild bilateral perinephric stranding. BLADDER: Unremarkable. GASTROINTESTINAL TRACT: There is scattered stool, diverticula and gas seen throughout the colon without distention or diverticulitis. The small bowel loops are normal. Suspect small duodenal diverticulum adjacent to the pancreatic duct insertion. Appendix is normal caliber. No inflammatory process seen. ABDOMINAL WALL: Small umbilical hernia containing fat is noted. LYMPH NODES: Small shotty lymph nodes are seen in the ileocecal region. The largest lymph node measures 1.3 cm and is nonspecific. VASCULAR: There is atherosclerotic calcification of abdominal aorta without aneurysmal dilatation. PELVIC VISCERA: Unremarkable. OSSEOUS STRUCTURES: No aggressive lytic or sclerotic process seen. CT/CT abdomen pelvis wo IV con IMPRESSION: 1. No acute intra-abdominal process seen. 2. Colonic diverticulosis without diverticulitis. Mild constipation. Fleischner guidelines were followed.
--- NOTE | ~2022-11-01 | CT_ITS ---
EXAMINATION: CT HEAD WITHOUT CONTRAST CLINICAL INFORMATION: Amnesia. COMPARISON: There are no prior studies available for comparison. TECHNIQUE: Contiguous axial imaging was performed from the skull base to vertex without intravenous administration of contrast. Coronal and sagittal reformatted images were generated at the technologist workstation. This CT examination was performed using dose optimization techniques as appropriate, variously including the following: *Automated exposure control *Adjustment of mA and/or kV according to patient size (this includes techniques or standardized protocols for targeted exams where dose is matched to indication/reason for exam; i.e. extremities or head) *Use of iterative reconstruction technique DLP: 758 mGy-cm FINDINGS: There is no evidence of acute intracranial hemorrhage or territorial infarction. No abnormal mass-effect or midline shift is seen. Simms to white matter differentiation is well preserved. No extra-axial fluid collections are identified. There is mild commensurate prominence the ventricles and sulci consistent with diffuse volume loss. There are areas of low-attenuation in the periventricular subcortical white matter, consistent with chronic microvascular ischemic changes. There are likely chronic infarcts in the right periventricular region superiorly, and in the right posterior occipital lobe. There are no acute osseous or soft tissue abnormalities. There is hyperostosis frontalis interna. There are atheromatous calcifications of the cavernous internal carotid arteries bilaterally. The mastoid air cells are well-aerated. There is mild opacification of a few right mid ethmoid air cells.. CT/CT head/brain wo IV con IMPRESSION: 1. There are no acute bleeds or territorial infarcts. No masses are demonstrated. 2. There are chronic microvascular ischemic changes and chronic infarcts. There is diffuse volume loss.
[2022-11-01 11:59] LABS: Blood Urea Nitrogen 32 mg/dL (9-16); Estimated Glomerular Filt Rate 26
== END 2022-11-01 10:48 | disposition home or self-care (01) ==
LOC: HO.CT 10:47
PROVIDERS: PCP Physician Assistant; Visit Provider Surgery
DX: R10.12 Left upper quadrant pain (principal); R41.9 Unspecified symptoms and signs involving cognitive functions and awareness
CPT/HCPCS: 36415; 70450; 74176; 82565; 84520

== ENCOUNTER 2022-11-08 10:49 | Outpatient (REF) | payer MEDICARE, MEDICAID, SELFPAY ==
[2022-11-08 15:22] LABS: Vitamin B12 1047 pg/mL (200-900)
[2022-11-13 17:43] LABS: Vitamin B1 91 nmol/L (8-30)
[2022-11-14 21:13] LABS: Vitamin B5 (Pantothenic Acid) 193 ng/mL (<275)
[2022-11-14 23:03] LABS: Nicotinamide <20 ng/mL; Vit B3 - Nicotinic Acid <20 ng/mL
== END 2022-11-08 10:50 | disposition home or self-care (01) ==
LOC: HO.LAB 10:49
PROVIDERS: PCP Physician Assistant; Visit Provider Surgery
DX: E53.9 Vitamin B deficiency, unspecified (principal); I63.9 Cerebral infarction, unspecified; R41.3 Other amnesia; E11.621 Type 2 diabetes mellitus with foot ulcer; L97.512 Non-pressure chronic ulcer of other part of right foot with fat layer exposed
CPT/HCPCS: 36415; 82607; 84207; 84425; 84591; 99212

== ENCOUNTER → 2022-11-22 10:54 | Outpatient (BNVA) | payer MEDICARE, MEDICAID, SELFPAY | PROVIDERS: PCP Physician Assistant; Visit Provider Surgery | DX: E11.65 Type 2 diabetes mellitus with hyperglycemia (principal); E11.40 Type 2 diabetes mellitus with diabetic neuropathy, unspecified; E11.22 Type 2 diabetes mellitus with diabetic chronic kidney disease; E11.621 Type 2 diabetes mellitus with foot ulcer; L97.512 Non-pressure chronic ulcer of other part of right foot with fat layer exposed; E11.43 Type 2 diabetes mellitus with diabetic autonomic (poly)neuropathy; K31.84 Gastroparesis; I12.9 Hypertensive chronic kidney disease with stage 1 through stage 4 chronic kidney disease, or unspecified chronic kidney disease; N18.30 Chronic kidney disease, stage 3 unspecified; E55.9 Vitamin D deficiency, unspecified; Z79.4 Long term (current) use of insulin | CPT/HCPCS: 99212 ==

== ENCOUNTER → 2022-12-06 10:52 | Outpatient (BNVA) | payer MEDICARE, MEDICAID, SELFPAY | PROVIDERS: PCP Physician Assistant; Visit Provider Surgery | DX: E11.621 Type 2 diabetes mellitus with foot ulcer (principal); L97.512 Non-pressure chronic ulcer of other part of right foot with fat layer exposed | CPT/HCPCS: 99212 ==

== ENCOUNTER → 2022-12-20 11:13 | Outpatient (BNVA) | payer MEDICARE, MEDICAID, SELFPAY | PROVIDERS: PCP Physician Assistant; Visit Provider Surgery | DX: E11.621 Type 2 diabetes mellitus with foot ulcer (principal); L97.512 Non-pressure chronic ulcer of other part of right foot with fat layer exposed | CPT/HCPCS: 97597; 99212 ==

== ENCOUNTER → 2023-01-10 11:10 | Outpatient (BNVA) | payer MEDICARE, MEDICAID, SELFPAY | PROVIDERS: PCP Physician Assistant; Visit Provider Surgery | DX: E11.621 Type 2 diabetes mellitus with foot ulcer (principal); L97.512 Non-pressure chronic ulcer of other part of right foot with fat layer exposed | CPT/HCPCS: 97597; 99212 ==

== ENCOUNTER → 2023-01-24 11:03 | Outpatient (BNVA) | payer MEDICARE, MEDICAID, SELFPAY | PROVIDERS: PCP Physician Assistant; Referring Provider Physician Assistant; Visit Provider Surgery | DX: E11.621 Type 2 diabetes mellitus with foot ulcer (principal); L97.512 Non-pressure chronic ulcer of other part of right foot with fat layer exposed | CPT/HCPCS: 97597; 99212 ==

== ENCOUNTER → 2023-02-07 10:59 | Outpatient (BNVA) | payer MEDICARE, MEDICAID, SELFPAY | PROVIDERS: PCP Physician Assistant; Visit Provider Surgery | DX: E11.621 Type 2 diabetes mellitus with foot ulcer (principal); L97.512 Non-pressure chronic ulcer of other part of right foot with fat layer exposed; L84 Corns and callosities | CPT/HCPCS: 97597; 99212 ==

== ENCOUNTER → 2023-02-28 10:49 | Outpatient (BNVA) | payer MEDICARE, MEDICAID, SELFPAY | PROVIDERS: PCP Physician Assistant; Visit Provider Surgery | DX: E11.621 Type 2 diabetes mellitus with foot ulcer (principal); L97.512 Non-pressure chronic ulcer of other part of right foot with fat layer exposed; E11.65 Type 2 diabetes mellitus with hyperglycemia; E11.22 Type 2 diabetes mellitus with diabetic chronic kidney disease; E11.40 Type 2 diabetes mellitus with diabetic neuropathy, unspecified; I12.9 Hypertensive chronic kidney disease with stage 1 through stage 4 chronic kidney disease, or unspecified chronic kidney disease; N18.30 Chronic kidney disease, stage 3 unspecified; Z79.4 Long term (current) use of insulin; Z79.899 Other long term (current) drug therapy | CPT/HCPCS: 99212 ==

== ENCOUNTER 2023-03-28 11:18 | Outpatient (AMB) | payer MEDICARE, MEDICAID, SELFPAY ==
--- NOTE | 2023-03-28 11:21 | MHC.OFFVIS ---
Intake Vital Signs 03/28/23 11:34 Height 5 ft 5 in Weight 156 lb BMI 26.0 BP 160/67 H Blood Pressure Location Lt brachial Position Sitting Pulse 95 Intake Visit Reasons: Left foot ulcer, 2 week follow up Intake Note: Patient is seen in office for follow up visit, following left foot ulcer. 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 Required: No Accompanied by: Self / Same As Patient Allergies gabapentin [GABAPENTIN] Allergy (Severe, Verified 03/28/23 11:34) SWELLING latex [LATEX] Allergy (Severe, Verified 03/28/23 11:34) ANAPHYLAXIS immune globulin,gamma (IgG)-klhw hu [From Xembify] Allergy (Verified 03/28/23 11:34) Rash levofloxacin Adverse Reaction (Unknown, Verified 03/28/23 11:34) multiple unpleasant side effects doxycycline Adverse Reaction (Verified 03/28/23 11:34) Hallucinations powder Allergy (Unknown, Uncoded 03/28/23 11:34) anaphylaxis Medication List - Last Reconciled 03/28/23 by Imer Mai MD amlodipine 10 mg PO DAILY atorvastatin 20 mg PO BEDTIME 90 days diazepam (Valium) 5 mg PO BID PRN dressing,collagen-Na alg-cmc 2 X 2 Apply to wound bed as directed, daily flash glucose scanning reader (FreeStyle Yuki 2 [place]) As directed flash glucose sensor (FreeStyle Yuki 2 Sensor kit) As directed flash glucose sensor (FreeStyle Yuki 14 Day Sensor kit) As directed fluconazole 200 mg PO DAILY 30 days insulin glargine U-300 conc 38 units (0.1267 mL) subcut DAILY 90 days insulin lispro (Humalog KwikPen (U-100) Insulin) 7-15 unts before each meal and snacks subcut . 4 times a day; 90 days irbesartan 150 mg PO DAILY 90 days linagliptin (Tradjenta) 5 mg PO DAILY morphine ER mg PO mupirocin 2% 1 appl topical BID omega-3 fatty acids 1,000 mg PO BID 30 days oxycodone 5 mg PO BID PRN oxycodone ER (OxyContin) 15 mg PO BID pen needle, diabetic As directed pen needle, diabetic (BD Padma 2nd Gen Pen Needle) 5 times a day sulfamethoxazole-trimethoprim 800-160 mg (Bactrim DS) 1 tab PO Q12H Synthroid (levothyroxine) 125 mcg PO DAILY 90 days NS HPI HPI Comments History of Present Illness Details Patient returns for wound check of her Bilateral diabetic foot ulcer. She continues with the silver alginate to the both foot wounds . She denies any new problems. [facility] Medical History CKD (chronic kidney disease) stage 3, GFR 30-59 ml/min Diabetes type 2, uncontrolled Diabetic neuropathy associated with type 2 diabetes mellitus Dyslipidemia Gastroparesis due to DM Hypertension retirement (current) use of insulin Vitamin D deficiency Surgical History History of tubal ligation Family History Father No problems noted. Mother Diabetes Social History Housing: Apartment Patient Tobacco Use Status: Never used Tobacco Tobacco use type: Cigarette e-Cigarette/Vaping Use: Never Used Second Hand Smoke Exposure: No service: No Current occupational status: retired and disabled Cognitive needs: Yes Hearing needs: No Vision needs: No Review of Systems Const All systems reviewed & are unremarkable except as noted in HPI and below Reports fatigue and Reports malaise Musc Reports as per HPI Skin/Breast Reports as per HPI Endo Reports fatigue Physical Exam Vital Signs: Last Vital Signs Pulse 95 03/28/23 11:34 BP 160/67 H 03/28/23 11:34 BMI result Body Mass Index 26.0 Const General: no acute distress HEENT Other: Right frontal incision is clean, dry, and intact. Polysorb sutures were removed in the incision found to be well healed. Resp Effort & Inspection: normal respiratory effort Skin Other: No cellulitis or rash Extrem Other: Right foot revealed a 1.2 cm round by 0.5 cm deep ulceration with granulation at its base. Surrounding callus was excised using a scalpel measuring 1.0 cm in diameter. The base of the wound was cauterized with silver nitrate. Silver alginate was applied to the wound base followed by dry sterile dressings. Left foot revealed 2 small shallow ulcers over the 3rd and 4th metatarsals with a small amount of callus surrounding it. This was shaved using a 15 blade. Each measured approximately 0.5 cm in diameter. Ulcer depth was approximately 2 mm. Silver alginate was applied to both wounds followed by dry sterile dressings. Assessment & Plan Assessment & Plan (1) Diabetic foot ulcer: Code(s): E11.621 - Type 2 diabetes mellitus with foot ulcer; L97.509 - Non-pressure chronic ulcer of other part of unspecified foot with unspecified severity Qualifiers: Diabetic foot ulcer location: toe Diabetes mellitus type: type 2 Laterality: right Non-pressure ulcer stage: with fat layer exposed Qualified Code(s): E11.621 - Type 2 diabetes mellitus with foot ulcer; L97.512 - Non-pressure chronic ulcer of other part of right foot with fat layer exposed Plan Patient returns for diabetic foot wound management. The bilateral foot ulcer calluses were debrided and silver alginate applied. Patient will continue with silver alginate dressings and follow-up in 2 weeks. Coding Level of Care Code Est Pt Level 3 (50554) Diagnoses Diabetic foot ulcer E11.621; L97.512 Diabetic foot ulcer location: toe Diabetes mellitus type: type 2 Laterality: right Non-pressure ulcer stage: with fat layer exposed
[2023-03-28 11:34] VITALS: BP 160/67; PULSE 95; BMI 26.0
== END 2023-03-28 11:54 | disposition home or self-care (01) ==
PROVIDERS: PCP Physician Assistant; Visit Provider Surgery
DX: E11.621 Type 2 diabetes mellitus with foot ulcer (principal); L97.512 Non-pressure chronic ulcer of other part of right foot with fat layer exposed; L84 Corns and callosities
CPT/HCPCS: 11056; 17250; 99213

== ENCOUNTER → 2023-03-28 11:18 | Outpatient (BNVA) | payer MEDICARE, MEDICAID, SELFPAY | PROVIDERS: PCP Physician Assistant; Visit Provider Surgery | DX: E11.621 Type 2 diabetes mellitus with foot ulcer (principal); L97.512 Non-pressure chronic ulcer of other part of right foot with fat layer exposed; E11.22 Type 2 diabetes mellitus with diabetic chronic kidney disease; E11.40 Type 2 diabetes mellitus with diabetic neuropathy, unspecified; E11.43 Type 2 diabetes mellitus with diabetic autonomic (poly)neuropathy; K31.84 Gastroparesis; I12.9 Hypertensive chronic kidney disease with stage 1 through stage 4 chronic kidney disease, or unspecified chronic kidney disease; N18.30 Chronic kidney disease, stage 3 unspecified; Z79.4 Long term (current) use of insulin | CPT/HCPCS: 11056; 17250; 99212 ==

== ENCOUNTER → 2023-04-23 13:16 | Outpatient (BNVA) | payer MEDICARE, MEDICAID, SELFPAY | PROVIDERS: PCP Physician Assistant; Visit Provider Surgery | DX: L97.519 Non-pressure chronic ulcer of other part of right foot with unspecified severity (principal) | CPT/HCPCS: 99211 ==

== ENCOUNTER 2023-04-25 12:16 | Outpatient (AMB) | payer MEDICARE, MEDICAID, SELFPAY ==
--- NOTE | 2023-04-25 14:04 | MHC.OFFVIS ---
Intake Intake Visit Reasons: wound check, redness Intake Note: This patient presents for an assessment for a wound check. Patient c/o; patient called yesterday 04/24/23 to report redness on her foot. 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: No Accompanied by: Self / Same As Patient Allergies gabapentin [GABAPENTIN] Allergy (Severe, Verified 04/25/23 14:42) SWELLING latex [LATEX] Allergy (Severe, Verified 04/25/23 14:42) ANAPHYLAXIS immune globulin,gamma (IgG)-klhw hu [From Xembify] Allergy (Verified 04/25/23 14:42) Rash levofloxacin Adverse Reaction (Unknown, Verified 04/25/23 14:42) multiple unpleasant side effects doxycycline Adverse Reaction (Verified 04/25/23 14:42) Hallucinations powder Allergy (Unknown, Uncoded 04/25/23 14:42) anaphylaxis Medication List - Last Reconciled 04/30/23 by Imer Mai MD amlodipine 10 mg PO DAILY atorvastatin 20 mg PO BEDTIME 90 days diazepam (Valium) 5 mg PO BID PRN dressing,collagen-Na alg-cmc 2 X 2 Apply to wound bed as directed, daily flash glucose scanning reader (FreeStyle Yuki 2 [place]) As directed flash glucose sensor (FreeStyle Yuki 2 Sensor kit) As directed flash glucose sensor (FreeStyle Yuki 14 Day Sensor kit) As directed fluconazole 200 mg PO DAILY 30 days insulin glargine U-300 conc 38 units (0.1267 mL) subcut DAILY 90 days insulin lispro (Humalog KwikPen (U-100) Insulin) 7-15 unts before each meal and snacks subcut . 4 times a day; 90 days irbesartan 150 mg PO DAILY 90 days linagliptin (Tradjenta) 5 mg PO DAILY morphine ER mg PO mupirocin 2% 1 appl topical BID omega-3 fatty acids 1,000 mg PO BID 30 days oxycodone 5 mg PO BID PRN oxycodone ER (OxyContin) 15 mg PO BID pen needle, diabetic As directed pen needle, diabetic (BD Padma 2nd Gen Pen Needle) 5 times a day Synthroid (levothyroxine) 125 mcg PO DAILY 90 days NS HPI HPI Comments History of Present Illness Details Patient reports that she was evicted from her apartment several weeks ago and required extensive walking up and down stairs to remove her clothing into a pod. This resulted in increased size of the ulceration in both feet as well some redness extending up the right foot. She started taking antibiotics which seems to be helping the redness. She is currently living in a hotel. 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 Mother Diabetes Social History Housing: Apartment Patient Tobacco Use Status: Never used Tobacco Tobacco use type: Cigarette e-Cigarette/Vaping Use: Never Used Second Hand Smoke Exposure: No service: No Current occupational status: retired and disabled Cognitive needs: Yes Hearing needs: No Vision needs: No Review of Systems Const All systems reviewed & are unremarkable except as noted in HPI and below Reports fatigue and Reports malaise Musc Reports as per HPI Skin/Breast Reports as per HPI Endo Reports fatigue Physical Exam Const General: no acute distress HEENT Other: Right frontal incision is clean, dry, and intact. Polysorb sutures were removed in the incision found to be well healed. Resp Effort & Inspection: normal respiratory effort Skin Other: No cellulitis or rash Extrem Other: Right foot ulceration is larger measuring approximately 2 cm in diameter extending down to metatarsal head which is exposed currently. Surrounding callus was excised using a scalpel measuring approximately 1 cm in diameter. There is granulation tissue along the margins but not involving the bone. Wounds were covered with silver alginate and cushion using gauze sponges. A small amount of residual erythema is noted on the dorsum of the right foot but no evidence of underlying abscess. Left foot reveals several small ulcerations over the 3rd and 4th metatarsal head also with callus formation. These were also dressed with silver alginate and cover with gauze sponges. Patient tolerated wound check well. Assessment & Plan Assessment & Plan (1) Diabetic foot ulcer: Code(s): E11.621 - Type 2 diabetes mellitus with foot ulcer; L97.509 - Non-pressure chronic ulcer of other part of unspecified foot with unspecified severity Qualifiers: Diabetic foot ulcer location: toe Diabetes mellitus type: type 2 Laterality: right Non-pressure ulcer stage: with fat layer exposed Qualified Code(s): E11.621 - Type 2 diabetes mellitus with foot ulcer; L97.512 - Non-pressure chronic ulcer of other part of right foot with fat layer exposed Plan Patient continues to deal with bilateral diabetic foot ulcers, aggravated by her current living situation. She is on her feet for prolonged period of time which worsens the healing process. I recommended she protective feet as much as possible with gauze sponges and of provided her with some ABD pads for additional cushioning. She will return in 2 weeks for follow-up examination. Coding Level of Care Code Est Pt Level 3 (39976) Diagnoses Diabetic foot ulcer E11.621; L97.512 Diabetic foot ulcer location: toe Diabetes mellitus type: type 2 Laterality: right Non-pressure ulcer stage: with fat layer exposed
== END 2023-04-25 15:01 | disposition home or self-care (01) ==
PROVIDERS: PCP Physician Assistant; Visit Provider Surgery
DX: E11.621 Type 2 diabetes mellitus with foot ulcer (principal); L97.512 Non-pressure chronic ulcer of other part of right foot with fat layer exposed; L97.522 Non-pressure chronic ulcer of other part of left foot with fat layer exposed
CPT/HCPCS: 99213

== ENCOUNTER 2023-04-25 12:49 | Outpatient (REF) | payer MEDICARE, MEDICAID, SELFPAY | END 2023-04-25 12:50 | disposition home or self-care (01) | LOC: HO.MRI 12:49 | PROVIDERS: PCP Physician Assistant; Visit Provider Physician Assistant | DX: E11.621 Type 2 diabetes mellitus with foot ulcer (principal); L97.512 Non-pressure chronic ulcer of other part of right foot with fat layer exposed; L97.529 Non-pressure chronic ulcer of other part of left foot with unspecified severity; Z79.4 Long term (current) use of insulin; Z79.899 Other long term (current) drug therapy | CPT/HCPCS: 99212 ==

== ENCOUNTER 2023-05-09 11:21 | Outpatient (AMB) | payer MEDICARE, MEDICAID, SELFPAY ==
--- NOTE | 2023-05-09 11:23 | A.OFFVIS_ITS ---
Intake Vital Signs 05/09/23 11:33 Height 5 ft 5 in Weight 154 lb 5.177 oz BMI 25.7 BP 182/84 H Blood Pressure Location Lt brachial Position Sitting Intake Visit Reasons: Left foot ulcer, 2 week follow up Intake Note: Patient is seen in office for follow up visit, following ulcer of the left foot. Patient c/o: admits to bleeding in the bottom healed Internal Medicine Veterinary Technician Required: No Accompanied by: Self / Same As Patient Allergies gabapentin [GABAPENTIN] Allergy (Severe, Verified 05/09/23 11:32) SWELLING latex [LATEX] Allergy (Severe, Verified 05/09/23 11:32) ANAPHYLAXIS immune globulin,gamma (IgG)-klhw hu [From Xembify] Allergy (Verified 05/09/23 11:32) Rash levofloxacin Adverse Reaction (Unknown, Verified 05/09/23 11:32) multiple unpleasant side effects doxycycline Adverse Reaction (Verified 05/09/23 11:32) Hallucinations powder Allergy (Unknown, Uncoded 05/09/23 11:32) anaphylaxis Medication List - Last Reconciled 05/09/23 by Imer Mai MD amlodipine 10 mg PO DAILY atorvastatin 20 mg PO BEDTIME 90 days diazepam (Valium) 5 mg PO BID PRN dressing,collagen-Na alg-cmc 2 X 2 Apply to wound bed as directed, daily flash glucose scanning reader (FreeStyle Yuki 2 [place]) As directed flash glucose sensor (FreeStyle Yuki 2 Sensor kit) As directed flash glucose sensor (FreeStyle Yuki 14 Day Sensor kit) As directed fluconazole 200 mg PO DAILY 30 days insulin glargine U-300 conc 38 units (0.1267 mL) subcut DAILY 90 days insulin lispro (Humalog KwikPen (U-100) Insulin) 7-15 unts before each meal and snacks subcut . 4 times a day; 90 days irbesartan 150 mg PO DAILY 90 days linagliptin (Tradjenta) 5 mg PO DAILY morphine ER mg PO mupirocin 2% 1 appl topical BID omega-3 fatty acids 1,000 mg PO BID 30 days oxycodone 5 mg PO BID PRN oxycodone ER (OxyContin) 15 mg PO BID pen needle, diabetic As directed pen needle, diabetic (BD Padma 2nd Gen Pen Needle) 5 times a day Synthroid (levothyroxine) 125 mcg PO DAILY 90 days NS HPI HPI Comments History of Present Illness Details Patient returns for wound check of bilateral foot ulcers. She continues to live in a hotel which requires significant increased walking. She feels a loose bone in the right foot and notes increased bleeding from the left foot. 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 Mother Diabetes Social History Housing: Apartment Patient Tobacco Use Status: Never used Tobacco Tobacco use type: Cigarette e-Cigarette/Vaping Use: Never Used Second Hand Smoke Exposure: No service: No Current occupational status: retired and disabled Cognitive needs: Yes Hearing needs: No Vision needs: No Review of Systems Const All systems reviewed & are unremarkable except as noted in HPI and below Reports fatigue and Reports malaise Musc Reports as per HPI Skin/Breast Reports as per HPI Endo Reports fatigue Physical Exam Vital Signs: Last Vital Signs BP 182/84 H 05/09/23 11:33 BMI result Body Mass Index 25.7 Const General: no acute distress HEENT Other: Right frontal incision is clean, dry, and intact. Polysorb sutures were removed in the incision found to be well healed. Resp Effort & Inspection: normal respiratory effort Skin Other: No cellulitis or rash Extrem Other: Right foot ulceration is much improved today but an area of fracture bone is noted at the wound base. The bone fragment was removed and silver nitrate used to cauterize the surrounding tissue. Left foot revealed minimal callus. Bleeding was noted from base of the 3rd toe. This also was cauterized using silver nitrate. Wounds on both feet were packed with silver alginate followed by 2 x 2 gauze and ABD pad for cushioning. This was followed by 3 in [place]. Assessment & Plan Assessment & Plan (1) Diabetic foot ulcer: Code(s): E11.621 - Type 2 diabetes mellitus with foot ulcer; L97.509 - Non-pressure chronic ulcer of other part of unspecified foot with unspecified severity Qualifiers: Diabetic foot ulcer location: toe Diabetes mellitus type: type 2 Laterality: right Non-pressure ulcer stage: with fat layer exposed Qualified Code(s): E11.621 - Type 2 diabetes mellitus with foot ulcer; L97.512 - Non- pressure chronic ulcer of other part of right foot with fat layer exposed Plan Continue with daily dressing changes with silver alginate dry sterile dressings. Patient will return in 2 weeks for wound check. Coding Level of Care Code Est Pt Level 3 (96109) Diagnoses Diabetic ulcer of toe of right foot associated with type 2 diabetes mellitus, with fat layer exposed E11.621; L97.512 Diabetic foot ulcer location: toe Diabetes mellitus type: type 2 Laterality: right Non-pressure ulcer stage: with fat layer exposed
[2023-05-09 11:33] VITALS: BP 182/84; BMI 25.7
== END 2023-05-09 12:09 | disposition home or self-care (01) ==
PROVIDERS: PCP Physician Assistant; Visit Provider Surgery
DX: E11.621 Type 2 diabetes mellitus with foot ulcer (principal); L97.512 Non-pressure chronic ulcer of other part of right foot with fat layer exposed
CPT/HCPCS: 17250; 99213

== ENCOUNTER → 2023-05-09 11:21 | Outpatient (BNVA) | payer MEDICARE, MEDICAID, SELFPAY | PROVIDERS: PCP Physician Assistant; Visit Provider Surgery | DX: E11.621 Type 2 diabetes mellitus with foot ulcer (principal); L97.512 Non-pressure chronic ulcer of other part of right foot with fat layer exposed | CPT/HCPCS: 99212 ==

== ENCOUNTER 2023-05-23 10:50 | Outpatient (AMB) | payer MEDICARE, MEDICAID, SELFPAY ==
--- NOTE | 2023-05-23 10:56 | A.OFFVIS_ITS ---
Intake Vital Signs 05/23/23 11:09 Height 5 ft 5 in Weight 157 lb BMI 26.1 BP 130/80 Blood Pressure Location Lt brachial Position Sitting Intake Visit Reasons: 2 wk check left foot ulcer Intake Note: Patient is seen in office for 2 wks follow up visit, following left foot ulcer. 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 Accompanied by: Self / Same As Patient Allergies gabapentin [GABAPENTIN] Allergy (Severe, Verified 05/23/23 11:12) SWELLING latex [LATEX] Allergy (Severe, Verified 05/23/23 11:12) ANAPHYLAXIS immune globulin,gamma (IgG)-klhw hu [From Xembify] Allergy (Verified 05/23/23 11:12) Rash levofloxacin Adverse Reaction (Unknown, Verified 05/23/23 11:12) multiple unpleasant side effects doxycycline Adverse Reaction (Verified 05/23/23 11:12) Hallucinations powder Allergy (Unknown, Uncoded 05/23/23 11:12) anaphylaxis Medication List - Last Reconciled 05/27/23 by Imer Mai MD amlodipine 10 mg PO DAILY atorvastatin 20 mg PO BEDTIME 90 days diazepam (Valium) 5 mg PO BID PRN dressing,collagen-Na alg-cmc 2 X 2 Apply to wound bed as directed, daily flash glucose scanning reader (FreeStyle Yuki 2 [place]) As directed flash glucose sensor (FreeStyle Yuki 2 Sensor kit) As directed flash glucose sensor (FreeStyle Yuki 14 Day Sensor kit) As directed fluconazole 200 mg PO DAILY 30 days insulin glargine U-300 conc 38 units (0.1267 mL) subcut DAILY 90 days insulin lispro (Humalog KwikPen (U-100) Insulin) 7-15 unts before each meal and snacks subcut . 4 times a day; 90 days irbesartan 150 mg PO DAILY 90 days linagliptin (Tradjenta) 5 mg PO DAILY morphine ER mg PO mupirocin 2% 1 appl topical BID omega-3 fatty acids 1,000 mg PO BID 30 days oxycodone 5 mg PO BID PRN oxycodone ER (OxyContin) 15 mg PO BID pen needle, diabetic As directed pen needle, diabetic (BD Padma 2nd Gen Pen Needle) 5 times a day Synthroid (levothyroxine) 125 mcg PO DAILY 90 days NS HPI HPI Comments History of Present Illness Details Reports bleeding from the right foot for several days but has now stopped. Noted some black changes which she felt was probably due to the silver nitrate. Overall feels the wounds have improved since [address] [facility] Medical History Vitamin D deficiency USP (current) use of insulin Hypertension Dyslipidemia CKD (chronic kidney disease) stage 3, GFR 30-59 ml/min Diabetic neuropathy associated with type 2 diabetes mellitus Gastroparesis due to DM Diabetes type 2, uncontrolled Surgical History History of tubal ligation Family History Father No problems noted. Mother Diabetes Social History Housing: Apartment Patient Tobacco Use Status: Never used Tobacco Tobacco use type: Cigarette e-Cigarette/Vaping Use: Never Used Second Hand Smoke Exposure: No service: No Current occupational status: retired and disabled Cognitive needs: Yes Hearing needs: No Vision needs: No Review of Systems Const All systems reviewed & are unremarkable except as noted in HPI and below Reports fatigue and Reports malaise Musc Reports as per HPI Skin/Breast Reports as per HPI Endo Reports fatigue Physical Exam Vital Signs: Last Vital Signs BP 130/80 05/23/23 11:09 BMI result Body Mass Index 26.1 Const General: no acute distress HEENT Other: Right frontal incision is clean, dry, and intact. Polysorb sutures were removed in the incision found to be well healed. Resp Effort & Inspection: normal respiratory effort Skin Other: No cellulitis or rash Extrem Other: Right foot ulceration is much improved today and no further bone fragments identified. Base of wound cauterized using silver nitrate and surrounding callus shaved with a 15 blade. Left foot revealed minimal callus. Bleeding was noted from base of the 3rd toe and silver nitrate applied. The more medial wound is now healed. Both wounds were packed with silver alginate followed by dry sterile dressings. Assessment & Plan Assessment & Plan (1) Diabetic foot ulcer: Code(s): E11.621 - Type 2 diabetes mellitus with foot ulcer; L97.509 - Non-pressure chronic ulcer of other part of unspecified foot with unspecified severity Qualifiers: Diabetic foot ulcer location: toe Diabetes mellitus type: type 2 Laterality: right Non-pressure ulcer stage: with fat layer exposed Qualified Code(s): E11.621 - Type 2 diabetes mellitus with foot ulcer; L97.512 - Non- pressure chronic ulcer of other part of right foot with fat layer exposed Plan Continue with daily dressing changes with silver alginate dry sterile dressings. Patient will return in 2 weeks for wound check. Coding Level of Care Code Est Pt Level 3 (77900) Diagnoses Diabetic ulcer of toe of right foot associated with type 2 diabetes mellitus, with fat layer exposed E11.621; L97.512 Diabetic foot ulcer location: toe Diabetes mellitus type: type 2 Laterality: right Non-pressure ulcer stage: with fat layer exposed
[2023-05-23 11:09] VITALS: BP 130/80; BMI 26.1
== END 2023-05-23 11:43 | disposition home or self-care (01) ==
PROVIDERS: PCP Physician Assistant; Visit Provider Surgery
DX: E11.621 Type 2 diabetes mellitus with foot ulcer (principal); L97.512 Non-pressure chronic ulcer of other part of right foot with fat layer exposed
CPT/HCPCS: 17250; 99213

== ENCOUNTER → 2023-05-23 10:50 | Outpatient (BNVA) | payer MEDICARE, MEDICAID, SELFPAY | PROVIDERS: PCP Physician Assistant; Visit Provider Surgery | DX: E11.621 Type 2 diabetes mellitus with foot ulcer (principal); L97.512 Non-pressure chronic ulcer of other part of right foot with fat layer exposed | CPT/HCPCS: 17250; 99212 ==

== ENCOUNTER 2023-06-06 10:38 | Outpatient (AMB) | payer MEDICARE, MEDICAID, SELFPAY ==
[2023-06-06 11:34] VITALS: BP 178/72; PULSE 94; BMI 26.1
--- NOTE | 2023-06-06 11:34 | MHC.OFFVIS ---
Intake Vital Signs 06/06/23 11:34 Height 5 ft 5 in Weight 157 lb BMI 26.1 BP 178/72 H Blood Pressure Location Lt brachial Position Sitting Pulse 94 Intake Visit Reasons: 2 wk follow up left foot ulcer Intake Note: Patient is seen in office for 2 weeks follow up visit, left foot ulcer. Patient c/o: admits to increase left foot visit after last visit, has 2 open wounds left foot, bloody discharge in the right foot Sales Lead Generator Required: No Accompanied by: Self / Same As Patient Allergies gabapentin [GABAPENTIN] Allergy (Severe, Verified 06/06/23 11:40) SWELLING latex [LATEX] Allergy (Severe, Verified 06/06/23 11:40) ANAPHYLAXIS immune globulin,gamma (IgG)-klhw hu [From Xembify] Allergy (Verified 06/06/23 11:40) Rash levofloxacin Adverse Reaction (Unknown, Verified 06/06/23 11:40) multiple unpleasant side effects doxycycline Adverse Reaction (Verified 06/06/23 11:40) Hallucinations powder Allergy (Unknown, Uncoded 06/06/23 11:40) anaphylaxis Medication List - Last Reconciled 06/06/23 by Imer Mai MD amlodipine 10 mg PO DAILY atorvastatin 20 mg PO BEDTIME 90 days diazepam (Valium) 5 mg PO BID PRN dressing,collagen-Na alg-cmc 2 X 2 Apply to wound bed as directed, daily flash glucose scanning reader (FreeStyle Yuki 2 [place]) As directed flash glucose sensor (FreeStyle Yuki 2 Sensor kit) As directed flash glucose sensor (FreeStyle Yuki 14 Day Sensor kit) As directed fluconazole 200 mg PO DAILY 30 days insulin glargine U-300 conc 38 units (0.1267 mL) subcut DAILY 90 days insulin lispro (Humalog KwikPen (U-100) Insulin) 7-15 unts before each meal and snacks subcut . 4 times a day; 90 days irbesartan 150 mg PO DAILY 90 days linagliptin (Tradjenta) 5 mg PO DAILY morphine ER mg PO mupirocin 2% 1 appl topical BID omega-3 fatty acids 1,000 mg PO BID 30 days oxycodone 5 mg PO BID PRN oxycodone ER (OxyContin) 15 mg PO BID pen needle, diabetic As directed pen needle, diabetic (BD Padma 2nd Gen Pen Needle) 5 times a day Synthroid (levothyroxine) 125 mcg PO DAILY 90 days NS HPI HPI Comments History of Present Illness Details Reports pain from the left foot for several days but has now stopped. The right foot is much improved with decreased diameter ulceration. She tries to stay off her feet as much as possible. [facility] Medical History Vitamin D deficiency [facility] (current) use of insulin Hypertension Dyslipidemia CKD (chronic kidney disease) stage 3, GFR 30-59 ml/min Diabetic neuropathy associated with type 2 diabetes mellitus Gastroparesis due to DM Diabetes type 2, uncontrolled Surgical History History of tubal ligation Family History Father No problems noted. Mother Diabetes Social History Housing: Apartment Patient Tobacco Use Status: Never used Tobacco Tobacco use type: Cigarette e-Cigarette/Vaping Use: Never Used Second Hand Smoke Exposure: No service: No Current occupational status: retired and disabled Cognitive needs: Yes Hearing needs: No Vision needs: No Review of Systems Const All systems reviewed & are unremarkable except as noted in HPI and below Reports fatigue and Reports malaise Musc Reports as per HPI Skin/Breast Reports as per HPI Endo Reports fatigue Physical Exam Vital Signs: Last Vital Signs Pulse 94 06/06/23 11:34 BP 178/72 H 06/06/23 11:34 BMI result Body Mass Index 26.1 Const General: no acute distress HEENT Other: Right frontal incision is clean, dry, and intact. Polysorb sutures were removed in the incision found to be well healed. Resp Effort & Inspection: normal respiratory effort Skin Other: No cellulitis or rash Extrem Other: Right foot ulceration is much improved today and no further bone fragments identified. The diameter continues to decrease in size and now measures approximately 5 mm across. Left foot revealed minimal callus. This callus was excised using a 15 blade circumferentially. The base of the wound is nicely granulated with no bone evident. Silver alginate was applied to both wounds followed by dry sterile dressings. Assessment & Plan Assessment & Plan (1) Diabetic foot ulcer: Code(s): E11.621 - Type 2 diabetes mellitus with foot ulcer; L97.509 - Non-pressure chronic ulcer of other part of unspecified foot with unspecified severity Qualifiers: Diabetic foot ulcer location: toe Diabetes mellitus type: type 2 Laterality: right Non-pressure ulcer stage: with fat layer exposed Qualified Code(s): E11.621 - Type 2 diabetes mellitus with foot ulcer; L97.512 - Non-pressure chronic ulcer of other part of right foot with fat layer exposed Plan Continue with daily dressing changes with silver alginate dry sterile dressings. Patient will return in 3 weeks for wound check. Coding Level of Care Code Est Pt Level 3 (23548) Diagnoses Diabetic ulcer of toe of right foot associated with type 2 diabetes mellitus, with fat layer exposed E11.621; L97.512 Diabetic foot ulcer location: toe Diabetes mellitus type: type 2 Laterality: right Non-pressure ulcer stage: with fat layer exposed
== END 2023-06-06 12:11 | disposition home or self-care (01) ==
PROVIDERS: PCP Physician Assistant; Visit Provider Surgery
DX: E11.621 Type 2 diabetes mellitus with foot ulcer (principal); L97.512 Non-pressure chronic ulcer of other part of right foot with fat layer exposed
CPT/HCPCS: 97597; 99213

== ENCOUNTER → 2023-06-06 10:38 | Outpatient (BNVA) | payer MEDICARE, MEDICAID, SELFPAY | PROVIDERS: PCP Physician Assistant; Visit Provider Surgery | DX: E11.621 Type 2 diabetes mellitus with foot ulcer (principal); L97.512 Non-pressure chronic ulcer of other part of right foot with fat layer exposed | CPT/HCPCS: 97597; 99212 ==

== ENCOUNTER 2023-06-27 11:18 | Outpatient (AMB) | payer MEDICARE, MEDICAID, SELFPAY ==
--- NOTE | 2023-06-27 11:58 | A.OFFVIS_ITS ---
Intake Vital Signs 06/27/23 12:11 Height 5 ft 5 in Weight 155 lb BMI 25.8 BP 149/67 H Blood Pressure Location Lt brachial Position Sitting Pulse 88 Intake Visit Reasons: 3 wk follow up left foot ulcer Intake Note: Patient is seen in office for 3 wks follow up visit, following left foot ulcer. Patient c/o: admits to open wound and discharge, has been walking more and wound is not healing properly per pt Purchase Price Analyst Required: No Accompanied by: Self / Same As Patient Allergies gabapentin [GABAPENTIN] Allergy (Severe, Verified 06/27/23 12:13) SWELLING latex [LATEX] Allergy (Severe, Verified 06/27/23 12:13) ANAPHYLAXIS immune globulin,gamma (IgG)-klhw hu [From Xembify] Allergy (Verified 06/27/23 12:13) Rash levofloxacin Adverse Reaction (Unknown, Verified 06/27/23 12:13) multiple unpleasant side effects doxycycline Adverse Reaction (Verified 06/27/23 12:13) Hallucinations powder Allergy (Unknown, Uncoded 06/27/23 12:13) anaphylaxis Medication List - Last Reconciled 07/01/23 by Imer Mai MD amlodipine 10 mg PO DAILY atorvastatin 20 mg PO BEDTIME 90 days diazepam (Valium) 5 mg PO BID PRN dressing,collagen-Na alg-cmc 2 X 2 Apply to wound bed as directed, daily flash glucose scanning reader (FreeStyle Yuki 2 [place]) As directed flash glucose sensor (FreeStyle Yuki 2 Sensor kit) As directed flash glucose sensor (FreeStyle Yuki 14 Day Sensor kit) As directed fluconazole 200 mg PO DAILY 30 days insulin glargine U-300 conc 38 units (0.1267 mL) subcut DAILY 90 days insulin lispro (Humalog KwikPen (U-100) Insulin) 7-15 unts before each meal and snacks subcut . 4 times a day; 90 days irbesartan 150 mg PO DAILY 90 days linagliptin (Tradjenta) 5 mg PO DAILY morphine ER mg PO mupirocin 2% 1 appl topical BID omega-3 fatty acids 1,000 mg PO BID 30 days oxycodone 5 mg PO BID PRN oxycodone ER (OxyContin) 15 mg PO BID pen needle, diabetic As directed pen needle, diabetic (BD Padma 2nd Gen Pen Needle) 5 times a day Synthroid (levothyroxine) 125 mcg PO DAILY 90 days NS HPI HPI Comments History of Present Illness Details Has been up on her feet due to her living conditions. She continues to reside in a hotel with her ex spouse. He is requiring more care other for she is on her feet much longer during the day. She feels this is negatively affecting her wound healing. [facility] Medical History Vitamin D deficiency [facility] (current) use of insulin Hypertension Dyslipidemia CKD (chronic kidney disease) stage 3, GFR 30-59 ml/min Diabetic neuropathy associated with type 2 diabetes mellitus Gastroparesis due to DM Diabetes type 2, uncontrolled Surgical History History of tubal ligation Family History Father No problems noted. Mother Diabetes Social History Housing: Apartment Patient Tobacco Use Status: Never used Tobacco Tobacco use type: Cigarette e-Cigarette/Vaping Use: Never Used Second Hand Smoke Exposure: No service: No Current occupational status: retired and disabled Cognitive needs: Yes Hearing needs: No Vision needs: No Review of Systems Const All systems reviewed & are unremarkable except as noted in HPI and below Reports fatigue and Reports malaise Musc Reports as per HPI Skin/Breast Reports as per HPI Endo Reports fatigue Physical Exam Vital Signs: Last Vital Signs Pulse 88 06/27/23 12:11 BP 149/67 H 06/27/23 12:11 BMI result Body Mass Index 25.8 Const General: no acute distress HEENT Other: Right frontal incision is clean, dry, and intact. Polysorb sutures were removed in the incision found to be well healed. Resp Effort & Inspection: normal respiratory effort Skin Other: No cellulitis or rash Extrem Other: Left foot with evidence of granulation tissue at the wound base with no exposed bone. A 2nd lesion located over the 1st metatarsal was identified and debrided of necrotic overlying skin, 1 cm in diameter. Right foot reveals a granulated wound with no necrotic subcutaneous tissue. Overlying callus surrounding the wound measuring 3 x 3 cm was debrided using scalpel. This included only outer layers of skin. Sterile dressings including silver alginate, 2 x 2 gauze and ABD were applied. Assessment & Plan Assessment & Plan (1) Diabetic foot ulcer: Code(s): E11.621 - Type 2 diabetes mellitus with foot ulcer; L97.509 - Non-pressure storage battery inspector and tester tammi ulcer of other part of unspecified foot with unspecified severity Qualifiers: Diabetic foot ulcer location: toe Diabetes mellitus type: type 2 Laterality: right Non-pressure ulcer stage: with fat layer exposed Qualified Code(s): E11.621 - Type 2 diabetes mellitus with foot ulcer; L97.512 - Non- pressure chronic ulcer of other part of right foot with fat layer exposed Plan Continue with daily dressing changes with silver alginate and dry sterile dressings. Patient will return in 3 weeks for wound check. Coding Level of Care Code Est Pt Level 3 (31088) Diagnoses Diabetic ulcer of toe of right foot associated with type 2 diabetes mellitus, with fat layer exposed E11.621; L97.512 Diabetic foot ulcer location: toe Diabetes mellitus type: type 2 Laterality: right Non-pressure ulcer stage: with fat layer exposed
[2023-06-27 12:11] VITALS: BP 149/67; PULSE 88; BMI 25.8
== END 2023-06-27 12:47 | disposition home or self-care (01) ==
PROVIDERS: PCP Physician Assistant; Visit Provider Surgery
DX: E11.621 Type 2 diabetes mellitus with foot ulcer (principal); L97.512 Non-pressure chronic ulcer of other part of right foot with fat layer exposed
CPT/HCPCS: 97597; 99213

== ENCOUNTER → 2023-06-27 11:18 | Outpatient (BNVA) | payer MEDICARE, MEDICAID, SELFPAY | PROVIDERS: PCP Physician Assistant; Visit Provider Surgery | DX: E11.621 Type 2 diabetes mellitus with foot ulcer (principal); L97.512 Non-pressure chronic ulcer of other part of right foot with fat layer exposed | CPT/HCPCS: 97597; 99212 ==

== ENCOUNTER 2023-07-22 13:46 | Outpatient (AMB) | payer MEDICARE, MEDICAID, SELFPAY ==
--- NOTE | 2023-07-22 13:48 | A.OFFVIS_ITS ---
Intake Vital Signs 07/22/23 13:57 Height 5 ft 5 in Weight 161 lb 8 oz BMI 26.9 BP 130/58 L Blood Pressure Location Lt brachial Position Sitting Pulse 90 Intake Visit Reasons: Diabetic foot ulcer Intake Note: Patient is seen in office for follow up visit, following diabetic foot ulcer. Patient c/o: has open wounds on bilateral foot, 3 under right foot & 2 under left foot Umbrella Repairer Required: No Accompanied by: Self / Same As Patient Allergies gabapentin [GABAPENTIN] Allergy (Severe, Verified 07/22/23 13:58) SWELLING latex [LATEX] Allergy (Severe, Verified 07/22/23 13:58) ANAPHYLAXIS immune globulin,gamma (IgG)-klhw hu [From Xembify] Allergy (Verified 07/22/23 13:58) Rash levofloxacin Adverse Reaction (Unknown, Verified 07/22/23 13:58) multiple unpleasant side effects doxycycline Adverse Reaction (Verified 07/22/23 13:58) Hallucinations powder Allergy (Unknown, Uncoded 07/22/23 13:58) anaphylaxis Medication List - Last Reconciled 07/22/23 by Imer Mai MD amlodipine 10 mg PO DAILY amoxicillin-pot clavulanate 500-125 mg 1 tab PO Q8H atorvastatin 20 mg PO BEDTIME 90 days diazepam (Valium) 5 mg PO BID PRN 30 days dressing,collagen-Na alg-cmc 2 X 2 Apply to wound bed as directed, daily flash glucose scanning reader (FreeStyle Yuki 2 [place]) As directed flash glucose sensor (FreeStyle Yuki 2 Sensor kit) As directed flash glucose sensor (FreeStyle Yuki 14 Day Sensor kit) As directed fluconazole 200 mg PO DAILY 30 days insulin glargine U-300 conc 38 units (0.1267 mL) subcut DAILY 90 days insulin lispro (Humalog KwikPen (U-100) Insulin) 7-15 unts before each meal and snacks subcut . 4 times a day; 90 days irbesartan 150 mg PO DAILY 90 days linagliptin (Tradjenta) 5 mg PO DAILY morphine ER mg PO mupirocin 2% 1 appl topical BID omega-3 fatty acids 1,000 mg PO BID 30 days oxycodone 5 mg PO BID PRN oxycodone ER (OxyContin) 15 mg PO BID pen needle, diabetic As directed pen needle, diabetic (BD Padma 2nd Gen Pen Needle) 5 times a day Synthroid (levothyroxine) 125 mcg PO DAILY 90 days NS HPI HPI Comments History of Present Illness Details Patient returns for wound check bilateral foot ulcers. She is now living near [facility] and [place] Has been up on her feet due to her living conditions. She continues to reside in a hotel with her ex spouse. He is requiring more care other for she is on her feet much longer during the day. She feels this is negatively affecting her wound healing. [facility] Medical History Vitamin D deficiency [facility] (current) use of insulin Hypertension Dyslipidemia CKD (chronic kidney disease) stage 3, GFR 30-59 ml/min Diabetic neuropathy associated with type 2 diabetes mellitus Gastroparesis due to DM Diabetes type 2, uncontrolled Surgical History History of tubal ligation Family History Father No problems noted. Mother Diabetes Housing: Apartment Patient Tobacco Use Status: Never used Tobacco Tobacco use type: Cigarette e-Cigarette/Vaping Use: Never Used Second Hand Smoke Exposure: No service: No Current occupational status: retired and disabled Cognitive needs: Yes Hearing needs: No Vision needs: No Physical Exam Vital Signs: Last Vital Signs Pulse 90 07/22/23 13:57 BP 130/58 L 07/22/23 13:57 BMI result Body Mass Index 26.9 Const General: no acute distress HEENT Head: Yes normocephalic Resp Effort & Inspection: normal respiratory effort Skin Other: No cellulitis or rash Extrem Other: Left foot with evidence of granulation tissue at the wound base with no exposed bone. A 2nd lesion located over the 1st metatarsal is much improved with no exposed granulation tissue but a small overlying callus. This was shaved using a 15 blade down to healthy skin. Wounds were covered with silver alginate and dry sterile dressings. Right foot with 2 small ulcers which again look much improved from prior examination. A small amount of callus was noted in the surr ounding skin which was shaved with the scalpel measuring approximately 2 x 2 cm. No necrotic skin or subcutaneous tissue was identified. No bone is exposed at this time. There is no surrounding erythema. Wounds were dressed with silver alginate and dry sterile dressings. Assessment & Plan Assessment & Plan (1) Diabetic foot ulcer: Code(s): E11.621 - Type 2 diabetes mellitus with foot ulcer; L97.509 - Non-pressure chronic ulcer of other part of unspecified foot with unspecified severity Qualifiers: Diabetic foot ulcer location: toe Diabetes mellitus type: type 2 Laterality: right Non-pressure ulcer stage: with fat layer exposed Qualified Code(s): E11.621 - Type 2 diabetes mellitus with foot ulcer; L97.512 - Non- pressure chronic ulcer of other part of right foot with fat layer exposed Plan Continue with daily dressing changes with silver alginate and dry sterile dressings. Patient will return in 2 weeks for wound check. Coding Level of Care Code Est Pt Level 3 (12108) Diagnoses Diabetic ulcer of toe of right foot associated with type 2 diabetes mellitus, with fat layer exposed E11.621; L97.512 Diabetic foot ulcer location: toe Diabetes mellitus type: type 2 Laterality: right Non-pressure ulcer stage: with fat layer exposed
[2023-07-22 13:57] VITALS: BP 130/58; PULSE 90; BMI 26.9
== END 2023-07-22 14:36 | disposition home or self-care (01) ==
PROVIDERS: PCP Physician Assistant; Visit Provider Surgery
DX: E11.621 Type 2 diabetes mellitus with foot ulcer (principal); L97.512 Non-pressure chronic ulcer of other part of right foot with fat layer exposed
CPT/HCPCS: 97597; 99213

== ENCOUNTER → 2023-07-22 13:46 | Outpatient (BNVA) | payer MEDICARE, MEDICAID, SELFPAY | PROVIDERS: PCP Physician Assistant; Visit Provider Surgery | DX: E11.621 Type 2 diabetes mellitus with foot ulcer (principal); L97.512 Non-pressure chronic ulcer of other part of right foot with fat layer exposed; L84 Corns and callosities | CPT/HCPCS: 97597; 99212 ==

== ENCOUNTER 2023-08-07 10:20 | Outpatient (AMB) | payer MEDICARE, MEDICAID, SELFPAY ==
--- NOTE | 2023-08-07 11:19 | MHC.OFFVIS ---
Intake Vital Signs 08/07/23 11:21 Height 5 ft 5 in Weight 142 lb BMI 23.6 BP 180/87 H Blood Pressure Location Lt brachial Position Sitting Intake Visit Reasons: Diabetic foot ulcer follow up Intake Note: Patient is seen in office for follow up visit, following diabetic foot ulcer. Pt c/o: left side has 3 open ulcer, right side has 2 open wounds, bone showing, discharge in the morning, painful Mental Hygiene Consultant Required: No Accompanied by: Self / Same As Patient Allergies gabapentin [GABAPENTIN] Allergy (Severe, Verified 08/07/23 11:24) SWELLING latex [LATEX] Allergy (Severe, Verified 08/07/23 11:24) ANAPHYLAXIS immune globulin,gamma (IgG)-klhw hu [From Xembify] Allergy (Verified 08/07/23 11:24) Rash levofloxacin Adverse Reaction (Unknown, Verified 08/07/23 11:24) multiple unpleasant side effects doxycycline Adverse Reaction (Verified 08/07/23 11:24) Hallucinations powder Allergy (Unknown, Uncoded 08/07/23 11:24) anaphylaxis HPI HPI Comments History of Present Illness Details Patient returns for wound check bilateral foot ulcers. She is now living near [facility] and [place] Has been up on her feet due to her living conditions. She continues to reside in a hotel with her ex spouse in [place]. He is requiring more care other for she is on her feet much longer during the day. She feels this is negatively affecting her wound healing. She is able to take the bus to the hospital which is free and she is living in the hotel for free as well with meals included which is a big help COUNTS INCLUDE 234 BEDS AT THE [facility] Medical History Vitamin D deficiency shelter (current) use of insulin Hypertension Dyslipidemia CKD (chronic kidney disease) stage 3, GFR 30-59 ml/min Diabetic neuropathy associated with type 2 diabetes mellitus Gastroparesis due to DM Diabetes type 2, uncontrolled Surgical History History of tubal ligation Family History Father No problems noted. Mother Diabetes Social History Housing: Apartment Patient Tobacco Use Status: Never used Tobacco Tobacco use type: Cigarette e-Cigarette/Vaping Use: Never Used Second Hand Smoke Exposure: No service: No Current occupational status: retired and disabled Cognitive needs: Yes Hearing needs: No Vision needs: No Review of Systems Const All systems reviewed & are unremarkable except as noted in HPI and below Reports fatigue and Reports malaise Musc Reports as per HPI Skin/Breast Reports as per HPI Endo Reports fatigue Physical Exam Vital Signs: Last Vital Signs BP 180/87 H 08/07/23 11:21 BMI result Body Mass Index 23.6 Const General: no acute distress HEENT Head: Yes normocephalic Resp Effort & Inspection: normal respiratory effort Skin Other: No cellulitis or rash Extrem Other: Left foot with evidence of granulation tissue at the wound base with no exposed bone . There is tendon exposed which was trimmed. A 2nd lesion located over the 1st metatarsal is much improved with no exposed granulation tissue but a small overlying callus. This was shaved using a 15 blade down to healthy skin. Wounds were covered with silver alginate and dry sterile dressings. Total area of debridement measured 2 x 2 cm extending down to the subcutaneous tissue and tendon. No bone was debrided. Right foot with 2 small ulcers which again look much improved from prior examination. A small amount of callus was noted in the surrounding skin which was shaved with the scalpel measuring approximately 2 x 1.5 cm. No necrotic skin or subcutaneous tissue was identified. No bone is exposed at this time. There is no surrounding erythema. Wounds were dressed with silver alginate and dry sterile dressings. Assessment & Plan Assessment & Plan (1) Diabetic foot ulcer: Code(s): E11.621 - Type 2 diabetes mellitus with foot ulcer; L97.509 - Non-pressure chronic ulcer of other part of unspecified foot with unspecified severity Qualifiers: Diabetic foot ulcer location: toe Diabetes mellitus type: type 2 Laterality: right Non-pressure ulcer stage: with fat layer exposed Qualified Code(s): E11.621 - Type 2 diabetes mellitus with foot ulcer; L97.512 - Non-pressure chronic ulcer of other part of right foot with fat layer exposed Plan Continue with daily dressing changes with silver alginate and dry sterile dressings. Patient will return in 2 weeks for wound check. Coding Level of Care Code Est Pt Level 3 (32551) Diagnoses Diabetic ulcer of toe of right foot associated with type 2 diabetes mellitus, with fat layer exposed E11.621; L97.512 Diabetic foot ulcer location: toe Diabetes mellitus type: type 2 Laterality: right Non-pressure ulcer stage: with fat layer exposed
[2023-08-07 11:21] VITALS: BP 180/87; BMI 23.6
== END 2023-08-07 11:56 | disposition home or self-care (01) ==
PROVIDERS: PCP Physician Assistant; Visit Provider Surgery
DX: E11.621 Type 2 diabetes mellitus with foot ulcer (principal); L97.512 Non-pressure chronic ulcer of other part of right foot with fat layer exposed
CPT/HCPCS: 11043; 99213

== ENCOUNTER → 2023-08-07 10:20 | Outpatient (BNVA) | payer MEDICARE, MEDICAID, SELFPAY | PROVIDERS: PCP Physician Assistant; Visit Provider Surgery | DX: E11.621 Type 2 diabetes mellitus with foot ulcer (principal); L97.512 Non-pressure chronic ulcer of other part of right foot with fat layer exposed | CPT/HCPCS: 11043; 99212 ==

== ENCOUNTER 2023-08-29 10:52 | Outpatient (AMB) | payer MEDICARE, MEDICAID, SELFPAY ==
[2023-08-29 11:17] VITALS: BP 157/70; PULSE 85; BMI 25.6
--- NOTE | 2023-08-29 11:17 | MHC.OFFVIS ---
Intake Vital Signs 08/29/23 11:17 Height 5 ft 5 in Weight 154 lb BMI 25.6 BP 157/70 H Blood Pressure Location Lt brachial Position Sitting Pulse 85 Intake Visit Reasons: Diabetic foot ulcer follow up Intake Note: Patient is seen in office for follow up visit, following diabetic foot ulcer. Pt c/o: reports no changes. 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 Accompanied by: Self / Same As Patient Allergies gabapentin [GABAPENTIN] Allergy (Severe, Verified 08/29/23 11:18) SWELLING latex [LATEX] Allergy (Severe, Verified 08/29/23 11:18) ANAPHYLAXIS immune globulin,gamma (IgG)-klhw hu [From Xembify] Allergy (Verified 08/29/23 11:18) Rash levofloxacin Adverse Reaction (Unknown, Verified 08/29/23 11:18) multiple unpleasant side effects doxycycline Adverse Reaction (Verified 08/29/23 11:18) Hallucinations powder Allergy (Unknown, Uncoded 08/29/23 11:18) anaphylaxis Medication List - Last Reconciled 08/29/23 by Imer Mai MD amlodipine 10 mg PO DAILY amoxicillin-pot clavulanate 500-125 mg 1 tab PO Q8H atorvastatin 20 mg PO BEDTIME 90 days diazepam (Valium) 5 mg PO BID PRN 30 days dressing,collagen-Na alg-cmc 2 X 2 Apply to wound bed as directed, daily flash glucose scanning reader (FreeStyle Yuki 2 [place]) As directed flash glucose sensor (FreeStyle Yuki 2 Sensor kit) As directed flash glucose sensor (FreeStyle Yuki 14 Day Sensor kit) As directed fluconazole 200 mg PO DAILY 30 days insulin glargine U-300 conc 38 units (0.1267 mL) subcut DAILY 90 days insulin lispro (Humalog KwikPen (U-100) Insulin) 7-15 unts before each meal and snacks subcut . 4 times a day; 90 days irbesartan 150 mg PO DAILY 90 days linagliptin (Tradjenta) 5 mg PO DAILY morphine ER mg PO mupirocin 2% 1 appl topical BID omega-3 fatty acids 1,000 mg PO BID 30 days oxycodone 5 mg PO BID PRN oxycodone ER (OxyContin) 15 mg PO BID pen needle, diabetic As directed pen needle, diabetic (BD Padma 2nd Gen Pen Needle) 5 times a day Synthroid (levothyroxine) 125 mcg PO DAILY 90 days NS HPI HPI Comments History of Present Illness Details Patient returns for wound check bilateral foot ulcers. Denies any significant changes in her bilateral feet ulcers. Presents today for debridement of callus formation bilaterally. [facility] Medical History Vitamin D deficiency detention (current) use of insulin Hypertension Dyslipidemia CKD (chronic kidney disease) stage 3, GFR 30-59 ml/min Diabetic neuropathy associated with type 2 diabetes mellitus Gastroparesis due to DM Diabetes type 2, uncontrolled Surgical History History of tubal ligation Family History Father No problems noted. Mother Diabetes Social History Housing: Apartment Patient Tobacco Use Status: Never used Tobacco Tobacco use type: Cigarette e-Cigarette/Vaping Use: Never Used Second Hand Smoke Exposure: No service: No Current occupational status: retired and disabled Cognitive needs: Yes Hearing needs: No Vision needs: No Review of Systems Const All systems reviewed & are unremarkable except as noted in HPI and below Denies fatigue and Denies malaise Card Denies chest pain Resp Denies cough Musc Reports as per HPI Skin/Breast Reports as per HPI Endo Denies fatigue Physical Exam Vital Signs: Last Vital Signs Pulse 85 08/29/23 11:17 BP 157/70 H 08/29/23 11:17 BMI result Body Mass Index 25.6 HEENT Head: Yes normocephalic Resp Effort & Inspection: normal respiratory effort Skin Other: No cellulitis or rash Extrem Other: Left foot with evidence of granulation tissue at the wound base with no exposed bone . No further tendon is exposed at this time and the granulation has completely covered the wound. A 2nd lesion located over the 1st metatarsal continues to improve with no exposed granulation tissue but a small overlying callus. The callus over both ulcers was excised using a 15 blade. Callus measured approximately 4 cm in diameter extended only to the epidermis. Wounds were covered with silver alginate and dry sterile dressings. Right foot with 2 small ulcers which again look much improved from prior examination. A small amount of callus was noted in the surrounding skin which was shaved with the scalpel measuring approximately 2 cm diameter. No necrotic skin or subcutaneous tissue was identified. No bone is exposed at this time. There is no surrounding erythema. Wounds were dressed with silver alginate and dry sterile dressings. Assessment & Plan Assessment & Plan (1) Diabetic foot ulcer: Code(s): E11.621 - Type 2 diabetes mellitus with foot ulcer; L97.509 - Non-pressure chronic ulcer of other part of unspecified foot with unspecified severity Qualifiers: Diabetic foot ulcer location: toe Diabetes mellitus type: type 2 Laterality: right Non-pressure ulcer stage: with fat layer exposed Qualified Code(s): E11.621 - Type 2 diabetes mellitus with foot ulcer; L97.512 - Non-pressure chronic ulcer of other part of right foot with fat layer exposed Plan Continue with daily dressing changes with silver alginate and dry sterile dressings. Patient will return in 2 weeks for wound check. Coding Level of Care Code Est Pt Level 3 (27265) Diagnoses Diabetic ulcer of toe of right foot associated with type 2 diabetes mellitus, with fat layer exposed E11.621; L97.512 Diabetic foot ulcer location: toe Diabetes mellitus type: type 2 Laterality: right Non-pressure ulcer stage: with fat layer exposed
== END 2023-08-29 12:06 | disposition home or self-care (01) ==
PROVIDERS: PCP Physician Assistant; Visit Provider Surgery
DX: E11.621 Type 2 diabetes mellitus with foot ulcer (principal); L97.512 Non-pressure chronic ulcer of other part of right foot with fat layer exposed
CPT/HCPCS: 97597; 99213

== ENCOUNTER → 2023-08-29 10:52 | Outpatient (BNVA) | payer MEDICARE, MEDICAID, SELFPAY | PROVIDERS: PCP Physician Assistant; Visit Provider Surgery | DX: E11.621 Type 2 diabetes mellitus with foot ulcer (principal); L97.512 Non-pressure chronic ulcer of other part of right foot with fat layer exposed | CPT/HCPCS: 97597; 99212 ==

== ENCOUNTER 2023-09-11 18:34 | Emergency (ER) | payer MEDICARE, MEDICAID, SELFPAY ==
[2023-09-11 19:01] VITALS: BP 140/76; PULSE 100; RESP 20; TEMP 36.2; O2SAT 98; BMI 21.1
--- NOTE | 2023-09-11 19:01 | ED.SOB ---
HPI - SOB/Dyspnea General Chief Complaint: Upper Respiratory Symptoms Stated Complaint: From SNF, SOB since sat, yellow phlegm, body aches Time Seen by Provider: 09/11/23 21:01 Source: patient Mode of arrival: ambulatory Limitations: no limitations History of Present Illness HPI Narrative: Patient is a 73-year-old female presenting to the emergency department with complaint of nonproductive cough, shortness of breath, headache and generalized body aches since Friday. Patient reports that symptoms began after picking up her ex- from a medical appointment at the hospital on Friday. She reports he has also been sick with similar symptoms. She states they are currently living in a hotel. She denies fevers, chest pain, palpitations. Denies abdominal pain, nausea, vomiting, diarrhea. States that she took a COVID test over the weekend which was negative. MD elicited complaint: cough Pertinent past history: diabetes and other Onset (ago): day(s) Timing: constant Severity: moderate Relieving factors: nothing Known history of: diabetes and other Associated symptoms: cough Treatment prior to arrival: none Related Data Home Medications Medication Instructions Recorded Confirmed morphine 60 mg tablet,extended mg PO 06/15/20 08/29/23 release oxycodone 15 mg tablet,crush 15 mg PO BID 06/07/22 08/29/23 resistant,extended release 12 hr (OxyContin) oxycodone 5 mg tablet 5 mg PO BID PRN chronic pain 11/22/22 08/29/23 Previous Rx's Medication Instructions Recorded omega-3 fatty acids 1,000 mg 1,000 mg PO BID 30 days #60 caps 06/22/20 capsule fluconazole 200 mg tablet 200 mg PO DAILY 30 days #30 tabs 01/22/21 dressing,collagen-sodium #1 box 02/15/21 alginate-carboxymethylcellulose 2 X 2 pen needle, diabetic 32 gauge x #100 ea 06/19/22 pen needle, diabetic 32 gauge x #400 ea 06/24/22 (BD Padma 2nd Gen Pen Needle) Synthroid 125 mcg tablet 125 mcg PO DAILY 90 days #90 tabs 12/02/22 (levothyroxine) atorvastatin 20 mg tablet 20 mg PO BEDTIME 90 days #90 tabs 12/02/22 insulin glargine U-300 conc 300 38 unit (0.1267 mL) subcut DAILY 12/02/22 unit/mL (1.5 mL) subcutaneous pen 90 days #4.5 mL linagliptin 5 mg tablet (Tradjenta) 5 mg PO DAILY #90 tabs 05/19/23 mupirocin 2 % topical ointment 1 appl topical BID #66 grams 05/31/23 amoxicillin 500 mg-potassium 1 tab PO Q8H #60 tabs 07/03/23 clavulanate 125 mg tablet irbesartan 150 mg tablet 150 mg PO DAILY 90 days #90 tabs 07/11/23 diazepam 5 mg tablet (Valium) 5 mg PO BID PRN anxiety 30 days 07/29/23 #60 tabs flash glucose sensor (FreeStyle #1 ea 08/11/23 Yuki 14 Day Sensor kit) amlodipine 10 mg tablet 10 mg PO DAILY #90 tabs 08/14/23 insulin lispro 100 unit/mL See Rx Instructions subcut . 4 08/27/23 subcutaneous pen (Humalog KwikPen times a day 90 days #45 mL (U-100) Insulin) flash glucose scanning reader #1 ea 09/09/23 (FreeStyle Yuki 2 [place]) flash glucose sensor (FreeStyle #1 ea 09/09/23 Yuki 2 Sensor kit) acetaminophen 325 mg capsule 650 mg (2 x 325 mg) PO Q6H PRN 09/11/23 fever or pain #20 caps benzonatate 100 mg capsule 100 mg PO TID PRN cough #20 caps 09/11/23 Allergies Allergy/AdvReac Type Severity Reaction Status Date / Time gabapentin [GABAPENTIN] Allergy Severe SWELLING Verified 09/11/23 19:04 latex [LATEX] Allergy Severe ANAPHYLAXIS Verified 09/11/23 19:04 immune globulin,gamma Allergy Rash Verified 09/11/23 19:04 (IgG)-klhw hu [From Xembify] levofloxacin AdvReac Unknown multiple Verified 09/11/23 19:04 unpleasant side effects doxycycline AdvReac Hallucinati Verified 09/11/23 19:04 ons powder Allergy Unknown anaphylaxis Uncoded 08/29/23 11:18 Review of Systems Review of Systems: As per HPI. 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 Mother Diabetes Social History Social History Housing: Apartment Patient Tobacco Use Status: Never used Tobacco Tobacco use type: Cigarette e-Cigarette/Vaping Use: Never Used Second Hand Smoke Exposure: No Advance Directives: No Advance Directives Information Provided: No service: No Current occupational status: retired and disabled Cognitive needs: Yes Hearing needs: No Vision needs: No Physical Exam Vital Signs: Vital Signs: Last Vital Signs Temp 98.5 F 09/11/23 21:31 Pulse 96 09/11/23 21:31 Resp 16 09/11/23 21:31 BP 120/69 09/11/23 21:31 Pulse Ox 98 09/11/23 21:31 O2 Del Method Room Air 09/11/23 21:31 O2 Flow Rate 95 09/11/23 20:21 BMI result Body Mass Index 21.1 Vital signs have been reviewed and appear to be correct. Blood pressure normal. Heart rate normal. Respiratory rate normal. Temperature normal. Oxygen saturation normal. Const: General: cooperative, healthy appearing and no acute distress Orientation/consciousness: oriented to person, oriented to place, oriented to time and patient oriented x3 Limitations: no limitations HEENT: Head: Yes normocephalic and Yes atraumatic Ears: external ears normal General nose exam: Normal external nose present Face and sinus: Yes face symmetric Mouth: oropharynx normal and moist mucous membranes Throat: Yes uvula midline Eyes: Pupils: Equal, round and reactive pupils present Neck: Neck: Yes normal visual inspection and Yes supple Resp: Effort & Inspection: normal respiratory effort and able to speak in complete sentences Auscultation: clear to auscultation bilaterally Cardio: Rate: regular rate Rhythm: regular rhythm Heart sounds: S1 normal heart sound present and S2 normal heart sound present GI: Palpation (GI): Soft to palpation and nontender Auscultation: normoactive bowel sounds : General: Yes no CVA tenderness Back/Spine/Pelvis: Back: no CVA tenderness Skin: General skin exam: elasticity normal and turgor normal Neuro: General: oriented to person, oriented to place, oriented to time, patient oriented x3, moves all extremities, no focal motor deficits and CN's II-XI intact bilaterally Cranial nerves: Yes Equal, round and reactive pupils present Cognition (Neuro): normal cognition Extrem: General: Yes full ROM, Yes no pedal edema and Yes no calf tenderness Psych: Mental Status: mental status grossly normal Affect: normal affect Thought process: Normal thought process present Course Course Course Narrative: Shortness of breath since Friday with cough, headache, and generalized body aches. Reports she has been using OTC cough/cold medication with little relief of symptoms. Chronic ulcers on bilateral lower legs with f/u with Dr Trejo tomorrow. RME: NAD, A&O x 4, [place] x 4, LS CTA, HR RRR Medical Decision Making Medical Decision Making [facility] Narrative: Patient is a 73-year-old female presenting to the emergency department with complaint of nonproductive cough, shortness of breath, headache and generalized body aches since Friday. On exam patient is awake, A+Ox3, VS WNL, afebrile, normal neurological exam without focal deficits, physical exam findings as above. Given reported symptoms and physical exam findings, initial differential includes viral illness, covid, flu, bronchitis. Covid swab positive, patient updated on results. Given that patient has been symptomatic, she is outside the treatment window for Paxlovid. Discussed with patient that treatment is symptomatic, she should ensure adequate rest and adequate fluid intake. Alternate Tylenol and ibuprofen, will prescribe benzonatate for cough. Discussed with patient that if her ex- has similar symptoms as he is likely COVID positive as well. Return precautions discussed at bedside. Patient verbalized understanding of and agreement with plan. Differential Diagnosis Differential Diagnoses: The differential diagnosis associated with the presentation includes As per MDM. Lab Data [facility] Lab Attestation statement: I reviewed the patient's lab results. As per [facility]. Labs: Lab Results 09/11/23 Range/Units 19:50 COVID-19 ([facility]NNY) Positive A (Negative) COVID-19 Clin Com See Note Influenza Type A ([facility]) Negative (Negative) Influenza Type B ([facility]) Negative (Negative) Influenza A & B Note See Note External Record Review External record reviewed: Inpatient record, Office record and Outpatient record Prescription Management I considered prescription management with: Antiviral and Other Discharge Plan Discharge Clinical Impression: COVID-19 Patient Disposition: Home, Self-Care Instructions: COVID-19 (Coronavirus Disease 2019) (ED) Additional Instructions: You were evaluated in the emergency department today for cough, headaches,body aches. Your COVID test was resulted as positive. You should continue to isolate at home while symptomatic. You should continue to wear mask while symptomatic as well. You can take Tylenol or ibuprofen, and are being prescribed benzonatate for cough. Return to the emergency department with worsening shortness of breath, chest pain, fever that does not improve with Tylenol or ibuprofen, persistent vomiting, or any other concerning symptoms. You should follow-up with your primary care provider. Prescriptions: New benzonatate 100 mg capsule 100 mg PO TID PRN (Reason: cough) Qty: 20 0RF acetaminophen 325 mg capsule 650 mg PO Q6H PRN (Reason: fever or pain) Qty: 20 0RF No Action omega-3 fatty acids 1,000 mg capsule 1,000 mg PO BID 30 Days Qty: 60 6RF (DME) dressing,collagen-Na alg-cmc 2 X 2 bandage See Rx Instructions .ROUTE .MEDSUPPLY Qty: 1 0RF Rx Instructions: Apply to wound bed as directed, daily (DME) pen needle, diabetic 32 gauge x 5/32 needle See Rx Instructions subcut .MEDSUPPLY Qty: 100 3RF Rx Instructions: As directed (DME) pen needle, diabetic [BD Padma 2nd Gen Pen Needle] 32 gauge x 5/32 needle See Rx Instructions .MEDSUPPLY Qty: 400 4RF Rx Instructions: 5 times a day Tradjenta 5 mg tablet 5 mg PO DAILY Qty: 90 1RF amoxicillin-pot clavulanate 500-125 mg tablet 1 tab PO Q8H Qty: 60 2RF irbesartan 150 mg tablet 150 mg PO DAILY 90 Days Qty: 90 2RF diazepam [Valium] 5 mg tablet 5 mg PO BID PRN (Reason: anxiety) 30 Days Qty: 60 1RF (DME) FreeStyle Yuki 14 Day Sensor Kit See Rx Instructions .Route Qty: 1 6RF Rx Instructions: As directed amlodipine 10 mg tablet 10 mg PO DAILY Qty: 90 1RF insulin lispro [Humalog KwikPen Insulin] 100 unit/mL insulin pen See Rx Instructions subcut . 4 times a day 90 Days Qty: 45 1RF Rx Instructions: 7-15 unts before each meal and snacks subcut . 4 times a day; (DME) FreeStyle Yuki 2 [place] Misc See Rx Instructions .Route Qty: 1 0RF Rx Instructions: As directed (DME) FreeStyle Yuki 2 Sensor Kit See Rx Instructions .Route Qty: 1 3RF Rx Instructions: As directed morphine 60 mg tablet extended release PO atorvastatin 20 mg tablet 20 mg PO BEDTIME 90 Days Qty: 90 2RF levothyroxine [Synthroid] 125 mcg tablet 125 mcg PO DAILY 90 Days Qty: 90 2RF insulin glargine U-300 conc 300 unit/mL (1.5 mL) insulin pen 38 unit subcut DAILY 90 Days Qty: 4.5 3RF fluconazole 200 mg tablet 200 mg PO DAILY 30 Days Qty: 30 1RF oxycodone 5 mg tablet 5 mg PO BID PRN (Reason: chronic pain) oxycodone [OxyContin] 15 mg tablet,oral only,ext.rel.12 hr 15 mg PO BID mupirocin 2 % ointment 1 appl topical BID Qty: 66 1RF Interventions: ED Discharge Assessment Last Done: 09/11/23 22:28 Discharge Date/Time: 09/11/23 22:32
[2023-09-11 20:05] LABS: COVID-19 Test Positive (Negative); IDNOW Serial# 58CA691E
[2023-09-11 20:16] LABS: IDNOW Serial# 9DB6401D; Influenza A Negative (Negative); Influenza B2 Negative (Negative)
[2023-09-11 20:21] VITALS: BP 161/88; PULSE 103; RESP 16; TEMP 36.3
--- NOTE | 2023-09-11 20:24 | MHC.EDTECH ---
RN aware of high bp
[2023-09-11 21:31] VITALS: BP 120/69; PULSE 96; RESP 16; TEMP 36.9; O2SAT 98
== END 2023-09-11 22:32 | disposition home or self-care (01) ==
PROVIDERS: Nurse Practitioner Family; Emergency Provider Student in an Organized Health Care Education/Training Program
DX: U07.1 COVID-19 (principal)
CPT/HCPCS: 87502; 87635; 99283

== ENCOUNTER 2023-09-13 14:14 | Emergency (ER) | payer MEDICARE, MEDICAID, SELFPAY ==
[2023-09-13 14:20] VITALS: BP 158/69; PULSE 94; O2SAT 98
== END 2023-09-13 17:02 | disposition left against medical advice (07) ==
PROVIDERS: Emergency Provider Emergency Medicine
DX: U07.1 COVID-19 (principal); R06.02 Shortness of breath; Z53.21 Procedure and treatment not carried out due to patient leaving prior to being seen by health care provider

== ENCOUNTER 2023-09-13 20:02 | Emergency (ER) | payer MEDICARE, MEDICAID, SELFPAY ==
[2023-09-13 20:10] VITALS: BP 136/75; PULSE 93; RESP 19; TEMP 36.6; O2SAT 98; BMI 21.3
[2023-09-13 22:34] VITALS: BP 116/65; PULSE 87; RESP 18; TEMP 36.6; O2SAT 97
[2023-09-13 22:43] LABS: Glucose, Whole Blood 140 mg/dL (60-115)
[2023-09-13 22:59] LABS: COVID-19 Test Positive (Negative); IDNOW Serial# 152EDE1D
[2023-09-13 23:10] LABS: IDNOW Serial# 9DB6401D; Influenza A Negative (Negative); Influenza B2 Negative (Negative)
--- NOTE | 2023-09-13 23:35 | ED.GENADULT ---
HPI - General Adult General Chief complaint: Upper Respiratory Symptoms Stated complaint: COVID? Was here today and LWT Time Seen by Provider: 09/13/23 23:05 Source: patient, RN notes reviewed and old records reviewed Mode of arrival: ambulatory Limitations: no limitations History of Present Illness HPI narrative: 73-year-old female past medical history significant for chronic kidney disease presents for evaluation of weakness Patient reports that she has been sick for the last 5 days. She tested positive for COVID-19 2 days ago She reports that she can not tolerate water without vomiting She has been able to tolerate some protein shakes She states that she feels weak like she is going to pass out whenever she stands up The patient has requesting ?IV fluids. Related Data Home Medications Medication Instructions Recorded Confirmed morphine 60 mg tablet,extended mg PO 06/15/20 08/29/23 release oxycodone 15 mg tablet,crush 15 mg PO BID 06/07/22 08/29/23 resistant,extended release 12 hr (OxyContin) oxycodone 5 mg tablet 5 mg PO BID PRN chronic pain 11/22/22 08/29/23 Previous Rx's Medication Instructions Recorded omega-3 fatty acids 1,000 mg 1,000 mg PO BID 30 days #60 caps 06/22/20 capsule fluconazole 200 mg tablet 200 mg PO DAILY 30 days #30 tabs 01/22/21 dressing,collagen-sodium #1 box 02/15/21 alginate-carboxymethylcellulose 2 X 2 pen needle, diabetic 32 gauge x #100 ea 06/19/22 5 pen needle, diabetic 32 gauge x #400 ea 06/24/22 (BD Padma 2nd Gen Pen Needle) Synthroid 125 mcg tablet 125 mcg PO DAILY 90 days #90 tabs 12/02/22 (levothyroxine) atorvastatin 20 mg tablet 20 mg PO BEDTIME 90 days #90 tabs 12/02/22 insulin glargine U-300 conc 300 38 unit (0.1267 mL) subcut DAILY 12/02/22 unit/mL (1.5 mL) subcutaneous pen 90 days #4.5 mL linagliptin 5 mg tablet (Tradjenta) 5 mg PO DAILY #90 tabs 05/19/23 mupirocin 2 % topical ointment 1 appl topical BID #66 grams 05/31/23 amoxicillin 500 mg-potassium 1 tab PO Q8H #60 tabs 11/02/23 clavulanate 125 mg tablet irbesartan 150 mg tablet 150 mg PO DAILY 90 days #90 tabs 07/11/23 diazepam 5 mg tablet (Valium) 5 mg PO BID PRN anxiety 30 days 07/29/23 #60 tabs flash glucose sensor (FreeStyle #1 ea 08/11/23 Yuki 14 Day Sensor kit) amlodipine 10 mg tablet 10 mg PO DAILY #90 tabs 08/14/23 insulin lispro 100 unit/mL See Rx Instructions subcut . 4 08/27/23 subcutaneous pen (Humalog KwikPen times a day 90 days #45 mL (U-100) Insulin) flash glucose scanning reader #1 ea 09/09/23 (FreeStyle Yuki 2 Meridian) flash glucose sensor (FreeStyle #1 ea 09/09/23 Yuki 2 Sensor kit) acetaminophen 325 mg capsule 650 mg (2 x 325 mg) PO Q6H PRN 09/11/23 fever or pain #20 caps benzonatate 100 mg capsule 100 mg PO TID PRN cough #20 caps 09/11/23 ondansetron 4 mg disintegrating 4 mg PO Q8H PRN nausea and 09/14/23 tablet vomiting #20 tabs Allergies Allergy/AdvReac Type Severity Reaction Status Date / Time gabapentin [GABAPENTIN] Allergy Severe SWELLING Verified 09/13/23 20:15 latex [LATEX] Allergy Severe ANAPHYLAXIS Verified 09/13/23 20:15 immune globulin,gamma Allergy Rash Verified 09/13/23 20:15 (IgG)-klhw hu [From Xembify] levofloxacin AdvReac Unknown multiple Verified 09/13/23 20:15 unpleasant side effects doxycycline AdvReac Hallucinati Verified 09/13/23 20:15 ons powder Allergy Unknown anaphylaxis Uncoded 09/13/23 20:15 Review of Systems Constitutional: Constitutional: Reports body ache(s), Reports chills, Reports fever(s), Reports headache(s), Reports malaise, Reports poor appetite and Reports weakness Eyes: Eyes: Denies blurry vision ENT: Reports headache(s) Cardiovascular: Cardiovascular: Denies chest pain and Denies dyspnea Respiratory: Respiratory: Denies cough and Denies dyspnea Gastrointestinal: Gastrointestinal: Denies abdominal pain, Reports nausea and Reports vomiting Musculoskeletal: Musculoskeletal: Denies back pain Integumentary/Breasts: Skin/Breast: Denies rash Neurologic: Reports headache(s) and Reports weakness PMFSH Past Medical History Onset Date is defined in the Problem List Problems that require an onset date and time if occurred within 24 hrs of arrival to the ED Aortic Dissection and Rupture; Neurologic impairment; Cardiopulmonary Arrest; Endotracheal Intubation; Insertion or Replacement of Mechanical Circulatory Assist Device Medical History 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 Mother Diabetes Social History Social History Housing: Apartment Patient Tobacco Use Status: Never used Tobacco Tobacco use type: Cigarette e-Cigarette/Vaping Use: Never Used Second Hand Smoke Exposure: No Advance Directives: No Advance Directives Information Provided: No service: No Current occupational status: retired and disabled Cognitive needs: Yes Hearing needs: No Vision needs: No Physical Exam ED Vital Signs: Vital Signs - 24 hr 09/13/23 20:10 09/13/23 22:34 Temperature 97.8 F 98 F Pulse Rate 93 87 Respiratory Rate 19 18 Blood Pressure 136/75 116/65 Pulse Oximetry 98 97 Oxygen Delivery Method Room Air Room Air BMI result Body Mass Index 21.3 Const General: healthy appearing, comfortable, no acute distress, alert and awake Nutritional Appearance: well nourished Orientation/consciousness: patient oriented x3 HENMT Head: Yes normocephalic and Yes atraumatic Eyes Eyelids: Yes eyelids normal Conjunctivae: conjunctivae normal Sclerae: sclerae normal Corneas: corneas normal Pupils: Equal, round and reactive pupils present EOM: EOMs intact bilaterally Neck Neck: Yes full ROM Resp Effort & Inspection: normal respiratory effort, able to speak in complete sentences and not labored Cardio Rate: regular rate Rhythm: regular rhythm Skin General skin exam: elasticity normal Neuro General: patient oriented x3 Cranial nerves: Yes Equal, round and reactive pupils present and Yes Bilaterally intact EOM present Cognition (Neuro): normal cognition Extrem Other: Moving all extremities well without any obvious deformities Course Reevaluation(s) Reevaluation #1: Patient had an elevated anion gap to 24 with a CO2 that was low at 16. Therefore I got an ABG. Her pH is slightly alkalotic at 7.49. This is likely related to her vomiting and was treated with IV fluids. Time: 01:15 Medications Administered Discontinued Medications Generic Name Dose Route Start Last Admin Trade Name Freq PRN Reason Stop Dose Admin Sodium Chloride 1,000 mls @ 999 mls/hr 09/13/23 23:30 09/13/23 23:41 Ns IV 09/14/23 00:30 999 mls/hr .Q1H1M ANEL Administration Ondansetron HCl 4 mg 09/13/23 23:28 09/13/23 23:41 Ondansetron Hcl 4 Mg/2 Ml Vial IVPUSH 09/13/23 23:29 4 mg ONCE ONE Administration Medical Decision Making Medical Decision Making [facility] Narrative: 73-year-old female with past medical history significant for chronic kidney disease presents for evaluation of weakness and decreased appetite in the setting of COVID-19. Given her chronic kidney disease, we will check basic labs and treat with IV fluids, Zofran. Differential Diagnosis Differential Diagnoses: The differential diagnosis associated with the presentation includes COVID-19 Orthostasis Dehydration Viral syndrome Weakness Admission/Observation Consideration of admission/observation: Escalation of care including admission/observation considered Metabolic alkalosis Lab Data [facility] Lab Attestation statement: I reviewed the patient's lab results. No leukocytosis or anemia. No significant electrolyte abnormalities exception of chloride I ends of 16. Patient has chronic kidney disease with a BUN of 66 and creatinine of 2.77. 09/13/23 23:40 09/13/23 23:40 Labs: Lab Results 09/13/23 09/13/23 09/13/23 Range/Units 22:32 22:36 23:40 WBC 7.7 (4.8-10.8) X10*3/uL RBC 4.96 (4.20-5.50) X10*6/uL Hgb 13.1 (12.0-16.0) g/dl Hct 39.1 (37.0-47.0) % MCV 78.8 L (80.0-98.0) fL MCH 26.4 L (27.0-33.0) pg MCHC 33.5 (31.0-35.0) g/dl RDW 14.5 (11.0-16.0) % Plt Count 239 (160-400) X10*3/uL MPV 9.9 (9.4-12.3) fL Immature Gran % (Auto) 3.0 H (0.0-0.4) % Neut % (Auto) 60.5 (45-73) % Lymph % (Auto) 24.3 (20-40) % Green % (Auto) 11.0 (2-11) % Eos % (Auto) 0.5 (0-4) % Baso % (Auto) 0.7 (0-2) % Lymph # (Auto) 1.9 (1.2-4.9) X10*3/uL Green # (Auto) 0.8 (0.1-1.2) X10*3/uL Eos # (Auto) 0.0 (0.0-0.4) X10*3/uL Baso # (Auto) 0.1 (0.0-0.2) X10*3/uL Abs Immat Gran (auto) 0.23 H (0.00-0.03) X10*3/uL Absolute Neuts (auto) 4.7 (2.0-8.3) x10*3/uL Absolute Nucleated RBC 0.000 (0.0-0.012) X10*3/uL Nucleated RBC % (auto) 0.0 (0.0-0.2) /100WBC O2 Saturation % ABG pH at Pt Temp (7.35-7.45) ABG pCO2 at Pt Temp (32-45) mmHg ABG pO2 at Pt Temp (83-108) mmHg ABG HCO3 (22-26) mmol/L ABG Base Excess (Actual) mmol/L Sodium 140 (135-145) mmol/L Potassium 3.5 (3.3-5.1) mmol/L Chloride 104 (96-108) mmol/L Carbon Dioxide 16 L (22-29) mmol/L Anion Gap 24 H (12-20) BUN 66 H (9-16) mg/dL Creatinine 2.77 H (0.5-1.4) mg/dL Estim Creat Clear Calc 15.7 Estimated GFR 17 POC Glucose 140 H (60-115) mg/dL Random Glucose 139 H (60-115) mg/dL Calcium 9.5 (8.4-10.2) mg/dL COVID-19 (JOHNNY) Positive A (Negative) COVID-19 Clin Com See Note Influenza Type A (ASHLEIGH) Negative (Negative) Influenza Type B ([facility]LEIGH) Negative (Negative) Influenza A & B Note See Note 09/14/23 Range/Units 00:40 WBC (4.8-10.8) X10*3/uL RBC (4.20-5.50) X10*6/uL Hgb (12.0-16.0) g/dl Hct (37.0-47.0) % MCV (80.0-98.0) fL MCH (27.0-33.0) pg MCHC (31.0-35.0) g/dl RDW (11.0-16.0) % Plt Count (160-400) X10*3/uL MPV (9.4-12.3) fL Immature Gran % (Auto) (0.0-0.4) % Neut % (Auto) (45-73) % Lymph % (Auto) (20-40) % Green % (Auto) (2-11) % Eos % (Auto) (0-4) % Baso % (Auto) (0-2) % Lymph # (Auto) (1.2-4.9) X10*3/uL Green # (Auto) (0.1-1.2) X10*3/uL Eos # (Auto) (0.0-0.4) X10*3/uL Baso # (Auto) (0.0-0.2) X10*3/uL Abs Immat Gran (auto) (0.00-0.03) X10*3/uL Absolute Neuts (auto) (2.0-8.3) x10*3/uL Absolute Nucleated RBC (0.0-0.012) X10*3/uL Nucleated RBC % (auto) (0.0-0.2) /100WBC O2 Saturation 99.0 % ABG pH at Pt Temp 7.49 H (7.35-7.45) ABG pCO2 at Pt Temp 21 L (32-45) mmHg ABG pO2 at Pt Temp 118 H (83-108) mmHg ABG HCO3 16 L (22-26) mmol/L ABG Base Excess (Actual) -5.0 mmol/L Sodium (135-145) mmol/L Potassium (3.3-5.1) mmol/L Chloride (96-108) mmol/L Carbon Dioxide (22-29) mmol/L Anion Gap (12-20) BUN (9-16) mg/dL Creatinine (0.5-1.4) mg/dL Estim Creat Clear Calc Estimated GFR POC Glucose (60-115) mg/dL Random Glucose (60-115) mg/dL Calcium (8.4-10.2) mg/dL COVID-19 (JOHNNY) (Negative) COVID-19 Clin Com Influenza Type A (ASHLEIGH) (Negative) Influenza Type B ([facility]LEIGH) (Negative) Influenza A & B Note Discharge Plan Discharge Clinical Impression: COVID-19, Weakness, Vomiting Patient Disposition: Home, Self-Care Instructions: COVID-19 (Coronavirus Disease 2019) (ED) Additional Instructions: Drink lots of fluids. Use Zofran as needed for nausea and vomiting Take all your medications as prescribed Follow-up with your primary doctor Prescriptions: New ondansetron 4 mg tablet,disintegrating 4 mg PO Q8H PRN (Reason: nausea and vomiting) Qty: 20 0RF No Action omega-3 fatty acids 1,000 mg capsule 1,000 mg PO BID 30 Days Qty: 60 6RF (DME) dressing,collagen-Na alg-cmc 2 X 2 bandage See Rx Instructions .ROUTE .MEDSUPPLY Qty: 1 0RF Rx Instructions: Apply to wound bed as directed, daily (DME) pen needle, diabetic 32 gauge x 5/32 needle See Rx Instructions subcut .MEDSUPPLY Qty: 100 3RF Rx Instructions: As directed (DME) pen needle, diabetic [BD Padma 2nd Gen Pen Needle] 32 gauge x 5/32 needle See Rx Instructions .MEDSUPPLY Qty: 400 4RF Rx Instructions: 5 times a day Tradjenta 5 mg tablet 5 mg PO DAILY Qty: 90 1RF amoxicillin-pot clavulanate 500-125 mg tablet 1 tab PO Q8H Qty: 60 2RF irbesartan 150 mg tablet 150 mg PO DAILY 90 Days Qty: 90 2RF diazepam [Valium] 5 mg tablet 5 mg PO BID PRN (Reason: anxiety) 30 Days Qty: 60 1RF (DME) FreeStyle Yuki 14 Day Sensor Kit See Rx Instructions .Route Qty: 1 6RF Rx Instructions: As directed amlodipine 10 mg tablet 10 mg PO DAILY Qty: 90 1RF insulin lispro [Humalog KwikPen Insulin] 100 unit/mL insulin pen See Rx Instructions subcut . 4 times a day 90 Days Qty: 45 1RF Rx Instructions: 7-15 unts before each meal and snacks subcut . 4 times a day; (DME) FreeStyle Yuki 2 Meridian Misc See Rx Instructions .Route Qty: 1 0RF Rx Instructions: As directed (DME) FreeStyle Yuki 2 Sensor Kit See Rx Instructions .Route Qty: 1 3RF Rx Instructions: As directed benzonatate 100 mg capsule 100 mg PO TID PRN (Reason: cough) Qty: 20 0RF acetaminophen 325 mg capsule 650 mg PO Q6H PRN (Reason: fever or pain) Qty: 20 0RF morphine 60 mg tablet extended release PO atorvastatin 20 mg tablet 20 mg PO BEDTIME 90 Days Qty: 90 2RF levothyroxine [Synthroid] 125 mcg tablet 125 mcg PO DAILY 90 Days Qty: 90 2RF insulin glargine U-300 conc 300 unit/mL (1.5 mL) insulin pen 38 unit subcut DAILY 90 Days Qty: 4.5 3RF fluconazole 200 mg tablet 200 mg PO DAILY 30 Days Qty: 30 1RF oxycodone 5 mg tablet 5 mg PO BID PRN (Reason: chronic pain) oxycodone [OxyContin] 15 mg tablet,oral only,ext.rel.12 hr 15 mg PO BID mupirocin 2 % ointment 1 appl topical BID Qty: 66 1RF
[2023-09-13] MEDS: 0.9 % Sodium Chloride 1,000 ML 999 ML IV (23:41)
[2023-09-13] MEDS: ondansetron HCL 4 MG/2 ML VIAL IVPUSH (23:41)
[2023-09-13 23:47] LABS: MANUAL DIFF FLAG NO
[2023-09-13 23:48] LABS: Basophils Absolute Auto 0.1 X10*3/uL (0.0-0.2); Basophils Percent Auto 0.7 % (0-2); Eosinophils Percent Auto 0.5 % (0-4); Hematocrit 39.1 % (37.0-47.0); Hemoglobin 13.1 g/dl (12.0-16.0); Imm Gran Abs Auto 0.23 X10*3/uL (0.00-0.03); Lymphocytes Absolute Auto 1.9 X10*3/uL (1.2-4.9); Lymphocytes Percent Auto 24.3 % (20-40); Mean Corpuscular HGB Conc 33.5 g/dl (31.0-35.0); Mean Corpuscular Hemoglobin 26.4 pg (27.0-33.0); Mean Corpuscular Volume 78.8 fL (80.0-98.0); Mean Platelet Volume 9.9 fL (9.4-12.3); Monocytes Absolute Auto 0.8 X10*3/uL (0.1-1.2); Neutrophils Absolute Auto 4.7 x10*3/uL (2.0-8.3); Neutrophils Percent Auto 60.5 % (45-73); Platelet Count 239 X10*3/uL (160-400); Red Blood Count 4.96 X10*6/uL (4.20-5.50); Red Cell Distribution Width 14.5 % (11.0-16.0); White Blood Count 7.7 X10*3/uL (4.8-10.8)
[2023-09-14 00:04] LABS: Anion Gap 24 (12-20); Blood Urea Nitrogen 66 mg/dL (9-16); Calcium 9.5 mg/dL (8.4-10.2); Carbon Dioxide 16 mmol/L (22-29); Chloride 104 mmol/L (96-108); Creatinine Clr Calc Pharmacy 15.7; Estimated Glomerular Filt Rate 17; Glucose Random 139 mg/dL (60-115); Potassium 3.5 mmol/L (3.3-5.1); Sodium 140 mmol/L (135-145)
[2023-09-14 00:46] LABS: ABG HCO3 16 mmol/L (22-26); ABG pCO2 21 mmHg (32-45); ABG pH 7.49 (7.35-7.45); ABG pO2 118 mmHg (83-108)
[2023-09-14 00:47] VITALS: O2SAT 98
[2023-09-14 01:41] LABS: ABG Refer to POC result
[2023-09-14 01:49] VITALS: PULSE 80; RESP 19; TEMP 36.6; O2SAT 97
== END 2023-09-14 01:50 | disposition home or self-care (01) ==
PROVIDERS: Physician Assistant; Emergency Provider Internal Medicine
DX: U07.1 COVID-19 (principal); R53.1 Weakness; R11.2 Nausea with vomiting, unspecified; E11.9 Type 2 diabetes mellitus without complications; I10 Essential (primary) hypertension; E78.5 Hyperlipidemia, unspecified; Z79.4 Long term (current) use of insulin; Z79.02 Long term (current) use of antithrombotics/antiplatelets; Z79.899 Other long term (current) drug therapy
CPT/HCPCS: 36415; 80048; 82803; 82947; 85025; 87502; 87635; 96374; 99284; 99285; J2405